=== PATIENT | male | born 1995 | race Caucasian/White ===

== ENCOUNTER 2016-08-21 21:01 | Emergency (ER) | payer SELFPAY ==
[~2016-08-21] VITALS: Ht 177.8 cm; Wt 68.8 kg
[2016-08-21 21:06] VITALS: TEMP 37; Ht 177.8 cm; Wt 68.8 kg
[2016-08-21 21:47] VITALS: O2SAT 99
[2016-08-21] MEDS ORDERED: NAPR1TAB9 PO (22:25)
[2016-08-21] MEDS ORDERED: DOXY100C76 PO (22:25)
[2016-08-21] MEDS ORDERED: SODIUM CHLORIDE 0.9% 1000ML 1,000 ML IV STA (22:33)
[2016-08-21] MEDS ORDERED: KETOROLAC TROMETHAMINE 30 MG/ML VIAL IV STA (22:33)
[2016-08-21 22:42] LABS: BASO % 0.2 %; BASO ABS # 0.02 K/uL (0-0.2); COMPLETE YES; EOS % 1.3 %; HEMATOCRIT 35.3 % (42-52); IG% 0.4 %; LYMPH ABS # 2.65 K/uL (1.2-3.4); MEAN CELL VOLUME 86.5 fL (80-100); MEAN CORPUSCULAR HEMOGLOBIN 29.4 pg (25-34); NEUT % 68.1 %; PLATELET COUNT 444 K/uL (130-400); RED BLOOD COUNT 4.08 M/uL (4.7-6.1); WHITE BLOOD COUNT 12.63 K/uL (4.8-10.8)
--- NOTE | 2016-08-21 22:51 | EMERGENCY ROOM VISIT NOTE ---
History Report prepared by Kelsey: Jamaal Del Rio Under the Supervision of: Dr. Guy Lott D.O. First contact with patient: 22:17 Chief Complaint: PAIN (GENERALIZED) Stated Complaint: STIFF NECK, SORE BONES/JOINTS, TIRED,UPSET STOMACH History of Present Illness The patient is a 20 year old male who presents to the Emergency Room with complaints of constant discomfort in his neck and feet beginning two months ago. The patient states that it all started with a stiff neck. He reports that his big toe, leg, and knee all began to swell, and he now has lower back pain, hip pain, headache, and shoulder pain. The patient notes that he has been seen by three different doctors and nothing helped his symptoms. He states that he was tested for Lyme, and it was negative. The patient states that he has been taking doxycycline for the past two weeks, and it has not helped either. He notes that he went to his PCP a month ago and was treated for gout. The patient denies rashes, shortness of breath, chest pain, urinary symptoms, difficulty waking, and abdominal pain. He also denies any history of surgeries and previous medical problems. The patient notes that he was in [place] two months ago, and that is when it started. Source of History: patient Onset: two months ago Position: neck, foot (bilateral) Timing: constant Associated Symptoms: + headache, + back pain, No chest pain, No SOB, No abdominal pain, No urinary symptoms, No rash Note: Associated symptoms: big toe, leg, and knee edema, hip pain, and shoulder pain. Review of Systems See HPI for pertinent positives & negatives. A total of 10 systems reviewed and were otherwise negative. Family History Patient reports no known family medical history. Social History Smoking Status: Never Smoker Current/Historical Medications Scheduled Amoxicillin (Amoxil), 500 MG PO TID Amoxicillin (Amoxil), 500 MG PO TID Doxycycline Monohydrate (Monodox), 100 MG PO BID Prednisone (Prednisone Tab), 40 MG PO DAILY Prednisone (Prednisone Tab), 2 TAB PO DAILY Miscellaneous Medications Naproxen (Aleve), 220 MG PO Allergies Coded Allergies: No Known Allergies (Unverified , 08/21/16) Physical Exam Vital Signs Date Time Temp Pulse Resp B/P (MAP) Pulse Ox O2 Delivery O2 Flow Rate FiO2 08/22/16 04:10 75 16 113/59 100 08/22/16 03:37 86 08/22/16 02:40 75 18 117/84 99 Room Air 08/21/16 22:01 75 18 121/63 98 Room Air 08/21/16 21:55 79 08/21/16 21:47 99 Room Air 08/21/16 21:06 37.0 98 18 118/71 97 Room Air Physical Exam GENERAL: Patient is awake, alert, and in no acute distress. Patient is resting comfortably and showing no signs of anxiety EYES: The conjunctivae are clear. The pupils are round and reactive. EARS, NOSE, MOUTH AND THROAT: The nose is without any evidence of any deformity. Mucous membranes are moist tongue is midline NECK: The neck is nontender and supple. RESPIRATORY: Normal respiratory effort is noted there is no evidence of wheezing rhonchi or rales CARDIOVASCULAR: Regular rate and rhythm noted there no murmurs rubs or gallops normal S1 normal S2 GASTROINTESTINAL: The abdomen is soft. Bowel sounds are present in all quadrants. Abdomen is nontender MUSCULOSKELETAL/EXTREMITIES: Effusion noted over the left knee, ROM was diminished secondary to pain, warmth noted, but no erythema. SKIN: There is no obvious evidence of any rash. There are no petechiae, pallor or cyanosis noted. NEUROLOGIC: Patient is awake alert and oriented x3 strength is symmetric patellar reflexes are 2+ bilaterally Medical Decision & Procedures ER Provider Diagnostic Interpretation: Radiology results as stated below per my review and radiologist interpretation: SINGLE VIEW CHEST CLINICAL HISTORY: Atypical chest pain. FINDINGS: 2 AP, portable, upright chest radiographs are obtained. No prior studies are available for comparison at the time of dictation. The examination is degraded by portable technique and patient rotation. The cardiomediastinal silhouette is unremarkable. The lungs and pleural spaces are clear. No pneumothorax is seen. The bony thorax is grossly intact. IMPRESSION: No active disease in the chest. Electronically signed by: Evin Enriquez M.D. 08/21/2016 11:13 PM Dictated Date/Time: 08/21/2016 11:[address] HEAD: No intracranial hemorrhage or mass effect. Ventricles are within limits and midline. Visualized paranasal sinuses, mastoid and orbitals are within limits. Radiologist: Samson Pryor MD Study ready at 23:26 and initial results transmitted at 23:49 Laboratory Results 08/21/16 21:40 Red Blood Count 4.08, Mean Corpuscular Volume 86.5, Mean Corpuscular Hemoglobin 29.4, Mean Corpuscular Hemoglobin Concent 34.0, Mean Platelet Volume 9.0, Neutrophils (%) (Auto) 68.1, Lymphocytes (%) (Auto) 21.0, Monocytes (%) (Auto) 9.0, Eosinophils (%) (Auto) 1.3, Basophils (%) (Auto) 0.2, Neutrophils # (Auto) 8.60, Lymphocytes # (Auto) 2.65, Monocytes # (Auto) 1.14, Eosinophils # (Auto) 0.17, Basophils # (Auto) 0.02 08/21/16 21:40 Test 08/21/16 21:40 08/22/16 00:29 08/22/16 01:36 08/22/16 02:50 White Blood Count 12.63 K/uL (4.8-10.8) Red Blood Count 4.08 M/uL (4.7-6.1) Hemoglobin 12.0 g/dL (14.0-18.0) Hematocrit 35.3 % (42-52) Mean Corpuscular Volume 86.5 fL (80-100) Mean Corpuscular Hemoglobin 29.4 pg (25-34) Mean Corpuscular Hemoglobin Concent 34.0 g/dl (32-36) Platelet Count 444 K/uL (130-400) Mean Platelet Volume 9.0 fL (7.4-10.4) Neutrophils (%) (Auto) 68.1 % Lymphocytes (%) (Auto) 21.0 % Monocytes (%) (Auto) 9.0 % Eosinophils (%) (Auto) 1.3 % Basophils (%) (Auto) 0.2 % Neutrophils # (Auto) 8.60 K/uL (1.4-6.5) Lymphocytes # (Auto) 2.65 K/uL (1.2-3.4) Monocytes # (Auto) 1.14 K/uL (0.11-0.59) Eosinophils # (Auto) 0.17 K/uL (0-0.5) Basophils # (Auto) 0.02 K/uL (0-0.2) RDW Standard Deviation 36.8 fL (36.4-46.3) RDW Coefficient of Variation 11.7 % (11.5-14.5) Immature Granulocyte % (Auto) 0.4 % Immature Granulocyte # (Auto) 0.05 K/uL (0.00-0.02) Erythrocyte Sedimentation Rate 58 mm/hr (0-14) Anion Gap 7.0 mmol/L (3-11) Est Creatinine Clear Calc Drug Dose 138.7 ml/min Estimated GFR () 146.5 Estimated GFR (Non- 126.4 BUN/Creatinine Ratio 20.2 (10-20) Calcium Level 9.5 mg/dl (8.5-10.1) Total Bilirubin 0.6 mg/dl (0.2-1) Direct Bilirubin 0.1 mg/dl (0-0.2) Aspartate Amino Transf (AST/SGOT) 30 U/L (15-37) Alanine Aminotransferase (ALT/SGPT) 59 U/L (12-78) Alkaline Phosphatase 83 U/L (45-117) Total Creatine Kinase 49 U/L (39-308) C-Reactive Protein 18.00 mg/dl (0-0.29) Total Protein 7.4 gm/dl (6.4-8.2) Albumin 3.0 gm/dl (3.4-5.0) Lipase 85 U/L (73-393) Lyme Disease IgG Antibody POS (NEG) Urine Color YELLOW Urine Appearance CLEAR (CLEAR) Urine pH 6.0 (4.5-7.5) Urine Specific [place] 1.019 (1.000-1.030) Urine Protein NEG (NEG) Urine Glucose (UA) NEG (NEG) Urine Ketones NEG (NEG) Urine Occult Blood NEG (NEG) Urine Nitrite NEG (NEG) Urine Bilirubin NEG (NEG) Urine Urobilinogen NEG (NEG) Urine Leukocyte Esterase NEG (NEG) Synovial Fluid Source KNEE Synovial Fluid Color YELLOW Synovial Fluid Appearance CLOUDY Synovial Fluid WBC 29988 /uL (0-200) Synovial Fluid RBC 3000 /uL Synovial Fluid Polynuclear WBCs % 76.3 % Synovial Fluid Mononuclear WBCs % 23.7 % Synovial Fluid Crystals CSF Color COLORLESS CSF Appearance CLEAR CSF WBC 0 /uL (0-5) CSF RBC 0 /uL (0) CSF Xanthrochromic NO XANTHOCHROMIA CSF Cell Count Tube # 4 CSF Chemistry Tube # 2 CSF Glucose 59 mg/dl (40-70) CSF Total Protein 33.5 mg/dl (15.0-45.0) Laboratory results per my review. Medications Administered Medications (Trade) Dose Ordered Sig/Jesus Route Start Time Stop Time Status Last Admin Dose Admin Sodium Chloride 1,000 ml @ 999 mls/hr Q1H1M STAT IV 08/21/16 22:33 08/21/16 23:33 DC 08/21/16 22:44 999 MLS/HR Ketorolac Tromethamine (Toradol Inj) 30 mg NOW STAT IV 08/21/16 22:33 08/21/16 22:35 DC 08/21/16 22:33 30 MG Ceftriaxone Sodium (Rocephin Inj) 1 gm NOW STAT IV 08/22/16 00:10 08/22/16 00:11 DC 08/22/16 00:10 1 GM Procedure Lumbar Puncture Indication: headache. Verbal consent was obtained after the risks and benefits were explained, including but not limited to headache, bleeding/clotting, scarring, infection, pain, and bone/joint/nerve damage. At this time, the risks of the procedure are less than the risks of NOT performing the procedure. A time out was taken and the correct patient and site identified. The patient was placed in the seated position and the back was prepped with betadine and draped in the standard fashion. The L3 intervertebral space was identified, anesthetized locally with 1 % lidocaine without epinephrine, and the spinal needle was inserted through the skin with the bevel parallel to the dural fibers. The needle was carefully advanced into the lumbar cistern and 4 tubes of clear CSF was obtained. The stylet was replaced and the needle was removed. A bandaid was placed and the patient was placed in the supine position. The patient tolerated the procedure well and there were no complications. ED Course 2230: The patient was evaluated in room C07. A complete history and physical examination were performed. 3: Ordered Toradol Inj 30mg IV, NSS 1,000 ml @ 999 mls/hr IV 0010: Ordered Rocephin Inj 1gm IV 0214: Upon reevaluation, the patient is resting comfortably. I discussed his current exam findings. I performed an LP. Refer to the procedure note for more information. Medical Decision Differential diagnosis: Etiologies such as migraine headache, meningitis, sinusitis, CO exposure, ICH, SAH, infection, tumor, headache, sinus thrombosis, arterial dissection, as well as others were entertained. Medication Reconciliation: I attest that I have personally reviewed the patient' s current medications list. Blood pressure screening: Patient was found to have normal blood pressure on screening and does not require follow-up. The patient is a 20-year-old male who presented to the emergency department for evaluation of multiple complaints including headache joint pain neck pain and back pain. The patient was recently diagnosed with Lyme disease and was put on doxycycline. He continues to take doxycycline the symptoms worsen. I was concerned that this could represent Lyme arthritis or possibly Lyme meningitis. The patient did have an arthrocentesis which revealed signs of inflammation but not septic joint. He also had a lumbar puncture which did not reveal signs of infection. I discussed the patient's laboratory and radiographic studies with him. He was treated with IV fluids IV pain medicine and IV antibiotics. He was switched to a different antibiotic and encouraged follow-up with his primary care physician as soon as possible return to the emergency department immediately if symptoms change worsen or the need arises Impression Primary Impression: Lyme disease Additional Impressions: Effusion, right knee Lyme arthritis of knee Headache Scribe Attestation The scribe's documentation has been prepared under my direction and personally reviewed by me in its entirety. I confirm that the note above accurately reflects all work, treatment, procedures, and medical decision making performed by me. Departure Information Prescriptions Prednisone (Prednisone Tab) 20 Mg Tab 2 TAB PO DAILY for 5 Days, #10 TAB Prov: Mandy Mckinley PA-C 08/22/16 Amoxicillin (AMOXIL) 500 Mg Cap 500 MG PO TID for 30 Days, #90 CAP Prov: Mandy Mckinley PA-C 08/22/16 Prednisone (Prednisone Tab) 20 Mg Tab 40 MG PO DAILY, #10 TAB Prov: Guy Lott, 08/22/16 Amoxicillin (AMOXIL) 500 Mg Tab 500 MG PO TID, #90 TAB Prov: Guy Lott, 08/22/16 Referrals No Doctor, Assigned (PCP) Patient Instructions [facility] Problem Qualifiers
[2016-08-21 22:52] LABS: BUN/CREATININE RATIO 20.2 (10-20); CALCIUM 9.5 mg/dl (8.5-10.1); CREATININE 0.82 mg/dl (0.60-1.40); POTASSIUM 3.9 mmol/L (3.5-5.1)
--- NOTE | 2016-08-21 23:15 | DIAGNOSTIC IMAGING REPORT ---
SINGLE VIEW CHEST CLINICAL HISTORY: Atypical chest pain. FINDINGS: 2 AP, portable, upright chest radiographs are obtained. No prior studies are available for comparison at the time of dictation. The examination is degraded by portable technique and patient rotation. The cardiomediastinal silhouette is unremarkable. The lungs and pleural spaces are clear. No pneumothorax is seen. The bony thorax is grossly intact. IMPRESSION: No active disease in the chest. Electronically signed by: Evin Enriquez M.D. 08/21/2016 11:13 PM Dictated Date/Time: 08/21/2016 11:13 PM
[2016-08-21 23:22] LABS: LYME DISEASE AB IGM NEG (NEG)
[2016-08-21 23:37] LABS: LYME DISEASE AB IGG POS (NEG)
[2016-08-22] MEDS ORDERED: CEFTRIAXONE SOD INJ 1 GM ADDVIAL IV STA (00:10)
[2016-08-22] MEDS: LIDOCAINE/EPINEPHRINE 1% 20 ML VIAL ONE (00:51)
[2016-08-22 01:01] LABS: URINE APPEARANCE CLEAR (CLEAR); URINE BILIRUBIN NEG (NEG); URINE COLOR YELLOW; URINE NITRITE NEG (NEG); URINE SPECIFIC GRAVITY 1.019 (1.000-1.030); UROBILINOGEN NEG (NEG)
[2016-08-22 01:02] LABS: MANUAL MICROSCOPIC REQUIRED? NO; REVIEW REQ? NO
[2016-08-22] MEDS ORDERED: LIDOCAINE HCL 1% 20 ML VIAL ONE (01:30)
[2016-08-22 02:47] LABS: SYNOVIAL FLUID APPEARANCE CLOUDY; SYNOVIAL FLUID COLOR YELLOW; SYNOVIAL FLUID MONONUC RELAT 23.7 %; SYNOVIAL FLUID POLYNUC RELAT 76.3 %
[2016-08-22] MEDS ORDERED: PRED20TA2 PO ×2 (03:10→04:05)
[2016-08-22] MEDS ORDERED: AMOX500T3 PO (03:10)
--- NOTE | 2016-08-22 03:13 | EMERGENCY ROOM VISIT NOTE ---
ED Visit Note Joint Aspiration Indication: Knee effusion Location: Right knee Verbal consent was obtained after the risks and benefits were explained, including but not limited to bleeding, scarring, infection, pain, and bone/joint /nerve damage. At this time, the risks of the procedure are less than the risks of NOT performing the procedure. A time out was taken and the correct patient and site identified. The skin was prepped with betadine and a sterile field set. The wound was anesthetized with 2ml of 1% lidocaine without epinephrine. The right knee joint space was entered with a 18-gauge needle and yellow synovial fluid of 100 mL's was removed and sent for analysis. The area was cleansed and dressed bacitracin and bandaged by nursing. Detailed wound care instructions and signs and symptoms of worsening infection reviewed with the patient. No complications and the patient tolerated the procedure well. Current/Historical Medications Scheduled Doxycycline Monohydrate (Monodox), 100 MG PO BID Miscellaneous Medications Naproxen (Aleve), 220 MG PO Allergies Coded Allergies: No Known Allergies (Unverified , 08/21/16) Vital Signs Date Time Temp Pulse Resp B/P (MAP) Pulse Ox O2 Delivery O2 Flow Rate FiO2 08/22/16 02:40 75 18 117/84 99 Room Air 08/21/16 22:01 75 18 121/63 98 Room Air 08/21/16 21:55 79 08/21/16 21:47 99 Room Air 08/21/16 21:06 37.0 98 18 118/71 97 Room Air Laboratory Results 08/21/16 21:40 Red Blood Count 4.08, Mean Corpuscular Volume 86.5, Mean Corpuscular Hemoglobin 29.4, Mean Corpuscular Hemoglobin Concent 34.0, Mean Platelet Volume 9.0, Neutrophils (%) (Auto) 68.1, Lymphocytes (%) (Auto) 21.0, Monocytes (%) (Auto) 9.0, Eosinophils (%) (Auto) 1.3, Basophils (%) (Auto) 0.2, Neutrophils # (Auto) 8.60, Lymphocytes # (Auto) 2.65, Monocytes # (Auto) 1.14, Eosinophils # (Auto) 0.17, Basophils # (Auto) 0.02 08/21/16 21:40 Test 08/21/16 21:40 6/23/17 00:29 08/22/16 01:36 08/22/16 02:50 White Blood Count 12.63 K/uL (4.8-10.8) Red Blood Count 4.08 M/uL (4.7-6.1) Hemoglobin 12.0 g/dL (14.0-18.0) Hematocrit 35.3 % (42-52) Mean Corpuscular Volume 86.5 fL (80-100) Mean Corpuscular Hemoglobin 29.4 pg (25-34) Mean Corpuscular Hemoglobin Concent 34.0 g/dl (32-36) Platelet Count 444 K/uL (130-400) Mean Platelet Volume 9.0 fL (7.4-10.4) Neutrophils (%) (Auto) 68.1 % Lymphocytes (%) (Auto) 21.0 % Monocytes (%) (Auto) 9.0 % Eosinophils (%) (Auto) 1.3 % Basophils (%) (Auto) 0.2 % Neutrophils # (Auto) 8.60 K/uL (1.4-6.5) Lymphocytes # (Auto) 2.65 K/uL (1.2-3.4) Monocytes # (Auto) 1.14 K/uL (0.11-0.59) Eosinophils # (Auto) 0.17 K/uL (0-0.5) Basophils # (Auto) 0.02 K/uL (0-0.2) RDW Standard Deviation 36.8 fL (36.4-46.3) RDW Coefficient of Variation 11.7 % (11.5-14.5) Immature Granulocyte % (Auto) 0.4 % Immature Granulocyte # (Auto) 0.05 K/uL (0.00-0.02) Erythrocyte Sedimentation Rate 58 mm/hr (0-14) Anion Gap 7.0 mmol/L (3-11) Est Creatinine Clear Calc Drug Dose 138.7 ml/min Estimated GFR () 146.5 Estimated GFR (Non- 126.4 BUN/Creatinine Ratio 20.2 (10-20) Calcium Level 9.5 mg/dl (8.5-10.1) Total Bilirubin 0.6 mg/dl (0.2-1) Direct Bilirubin 0.1 mg/dl (0-0.2) Aspartate Amino Transf (AST/SGOT) 30 U/L (15-37) Alanine Aminotransferase (ALT/SGPT) 59 U/L (12-78) Alkaline Phosphatase 83 U/L (45-117) Total Creatine Kinase 49 U/L (39-308) C-Reactive Protein 18.00 mg/dl (0-0.29) Total Protein 7.4 gm/dl (6.4-8.2) Albumin 3.0 gm/dl (3.4-5.0) Lipase 85 U/L (73-393) Lyme Disease IgG Antibody POS (NEG) Urine Color YELLOW Urine Appearance CLEAR (CLEAR) Urine pH 6.0 (4.5-7.5) Urine Specific [place] 1.019 (1.000-1.030) Urine Protein NEG (NEG) Urine Glucose (UA) NEG (NEG) Urine Ketones NEG (NEG) Urine Occult Blood NEG (NEG) Urine Nitrite NEG (NEG) Urine Bilirubin NEG (NEG) Urine Urobilinogen NEG (NEG) Urine Leukocyte Esterase NEG (NEG) Synovial Fluid Source KNEE Synovial Fluid Color YELLOW Synovial Fluid Appearance CLOUDY Synovial Fluid WBC 55948 /uL (0-200) Synovial Fluid RBC 3000 /uL Synovial Fluid Polynuclear WBCs % 76.3 % Synovial Fluid Mononuclear WBCs % 23.7 % Medications Administered Medications (Trade) Dose Ordered Sig/Jesus Route Start Time Stop Time Status Last Admin Dose Admin Sodium Chloride 1,000 ml @ 999 mls/hr Q1H1M STAT IV 08/21/16 22:33 08/21/16 23:33 DC 08/21/16 22:44 999 MLS/HR Ketorolac Tromethamine (Toradol Inj) 30 mg NOW STAT IV 08/21/16 22:33 08/21/16 22:35 DC 08/21/16 22:33 30 MG Ceftriaxone Sodium (Rocephin Inj) 1 gm NOW STAT IV 08/22/16 00:10 08/22/16 00:11 DC 08/22/16 00:10 1 GM Departure Information Referrals No Doctor, Assigned (PCP) Patient Instructions [facility]
[2016-08-22 03:26] LABS: CSF TOTAL PROTEIN 33.5 mg/dl (15.0-45.0)
[2016-08-22 03:33] LABS: CSF CHEMISTRY TUBE # 2
[2016-08-22 03:53] LABS: CSF APPEARANCE CLEAR; CSF COLOR COLORLESS; CSF XANTHOCHROMIC NO XANTHOCHROMIA
[2016-08-22 04:02] LABS: CSF APPEARANCE CLEAR; CSF COLOR COLORLESS; CSF XANTHOCHROMIC NO XANTHOCHROMIA
[2016-08-22] MEDS ORDERED: AMOX500C3 PO (04:05)
[2016-08-22 04:10] VITALS: BP 113/59; PULSE 75; O2SAT 100
--- NOTE | 2016-08-22 06:34 | DIAGNOSTIC IMAGING REPORT ---
CT HEAD WITHOUT CONTRAST (CT) CLINICAL HISTORY: Headache, stiff neck, malaise. COMPARISON STUDY: No previous studies for comparison. TECHNIQUE: Axial CT of the brain is performed from the vertex to the skull base. IV contrast was not administered for this examination. CT DOSE: 537.48 mGy.cm FINDINGS: No intra or extra-axial mass lesions are visualized. There is no CT evidence of acute cortical infarction. There is no evidence of midline shift. There is no acute hemorrhage. No calvarial fractures are visualized. There is no evidence of pathologic ventricular dilatation. There is no evidence of acute sinusitis IMPRESSION: Normal noncontrast head CT. Electronically signed by: Elliott Carrillo M.D. 08/22/2016 6:32 AM Dictated Date/Time: 08/22/2016 6:31 AM
[2016-08-25 00:57] LABS: LYME DNA PCR CSF OR SYNOVIAL Not detected (Not Detected); LYME DNA SOURCE Synovial Fluid
[2016-08-25 00:57] LABS: LYME DNA PCR CSF OR SYNOVIAL Not detected (Not Detected); LYME DNA SOURCE CSF
[2016-08-27 00:01] LABS: 18KDIGG BAND NONREACTIVE (NONREACTIVE); 23KDIGG BAND NONREACTIVE (NONREACTIVE); 23KDIGM BAND NONREACTIVE (NONREACTIVE); 28KDIGG BAND NONREACTIVE (NONREACTIVE); 30KDIGG BAND NONREACTIVE (NONREACTIVE); 39KDIGG BAND NONREACTIVE (NONREACTIVE); 39KDIGM BAND NONREACTIVE (NONREACTIVE); 41KDIGG BAND NONREACTIVE (NONREACTIVE); 41KDIGM BAND NONREACTIVE (NONREACTIVE); 45KDIGG BAND REACTIVE (NONREACTIVE); 58KDIGG BAND NONREACTIVE (NONREACTIVE); 66KDIGG BAND NONREACTIVE (NONREACTIVE); 93KDIGG BAND NONREACTIVE (NONREACTIVE)
[2016-09-03] MEDS ORDERED: MTR600X PO (13:15)
[2016-09-04] MEDS ORDERED: METH4PAK PO (12:05)
[2016-09-04] MEDS ORDERED: MELO7.5T6 PO (12:05)
== END 2016-08-22 04:13 | disposition home or self-care (01) ==
LOC: C.EDB 21:03 → C.EDA 08-22 04:13
DX: A69.23 Arthritis due to Lyme disease (principal); M25.461 Effusion, right knee; R51 Headache; M10.9 Gout, unspecified

== ENCOUNTER 2016-08-30 19:56 | Inpatient (IN) | payer OTHER ==
[~2016-08-30] VITALS: Ht 177.8 cm; Wt 65.8 kg
[~2016-08-30 19:56] MED LIST: AMOX500C3 PO; AMOX500T3 PO; DOXY100C76 PO; NAPR1TAB9 PO; PRED20TA2 PO
[2016-08-30] MEDS ORDERED: AMOX500C3 PO (20:23)
[2016-08-30] MEDS ORDERED: SODIUM CHLORIDE 0.9% 500ML 500 ML IV STA (20:24)
[2016-08-30] MEDS ORDERED: ONDANSETRON INJ 2 MG/ML 2 ML VIAL IV STA (20:24)
[2016-08-30] MEDS ORDERED: SODIUM CHLORIDE 0.9% 1000ML 1,000 ML IV STA (20:24)
[2016-08-30 20:55] LABS: BASO % 0.2 %; BASO ABS # 0.03 K/uL (0-0.2); COMPLETE YES; EOS % 1.2 %; HEMATOCRIT 37.8 % (42-52); IG% 1.8 %; LYMPH % 18.5 %; LYMPH ABS # 2.92 K/uL (1.2-3.4); MEAN CELL VOLUME 86.5 fL (80-100); MEAN CORPUSCULAR HEMOGLOBIN 29.1 pg (25-34); MEAN CORPUSCULAR HGB CONC 33.6 g/dl (32-36); MEAN PLATELET VOLUME 9.1 fL (7.4-10.4); MONO % 6.6 %; NEUT % 71.7 %; PLATELET COUNT 547 K/uL (130-400); RED BLOOD COUNT 4.37 M/uL (4.7-6.1); WHITE BLOOD COUNT 15.81 K/uL (4.8-10.8)
[2016-08-30] MEDS: MoRPHine SULFATE 4 MG/ML 1 ML CARP\\VIAL IV PRN ×2 (21:03→23:34)
[2016-08-30 21:14] LABS: BLOOD UREA NITROGEN 20 mg/dl (7-18); BUN/CREATININE RATIO 23.9 (10-20); CALCIUM 9.4 mg/dl (8.5-10.1); CARBON DIOXIDE 29 mmol/L (21-32); CHLORIDE 103 mmol/L (98-107); CREATININE 0.83 mg/dl (0.60-1.40); GLUCOSE 100 mg/dl (70-99); POTASSIUM 4.1 mmol/L (3.5-5.1); SODIUM 138 mmol/L (136-145)
[2016-08-30 21:39] LABS: URINE APPEARANCE CLEAR (CLEAR); URINE BILIRUBIN NEG (NEG); URINE COLOR YELLOW; URINE NITRITE NEG (NEG); UROBILINOGEN NEG (NEG)
[2016-08-30 21:44] LABS: MANUAL MICROSCOPIC REQUIRED? NO; REVIEW REQ? NO
[2016-08-30] MEDS ORDERED: GADAVIST IV PRN (22:30)
--- NOTE | 2016-08-30 22:39 | DIAGNOSTIC IMAGING REPORT ---
MRI OF THE CERVICAL SPINE WITH AND WITHOUT CONTRAST CLINICAL HISTORY: Severe neck pain, fever and leukocytosis COMPARISON: None. TECHNIQUE: Utilizing a 1.5 Evy magnet and dedicated coil, multiplanar, multiecho imaging of the cervical spine was performed before and after intravenous administration of 7 of Gadavist. FINDINGS: Alignment of the cervical spine is anatomic. Vertebral body heights are maintained. There is no marrow replacement or marrow edema. Cervical cord signal and caliber are normal. There is no intracanalicular mass or fluid collection. Paravertebral tissues are unremarkable. C2-C3: The central canal and neural foramen are patent. C3-C4: The central canal and neural foramen are patent. C4-C5: The central canal and neural foramen are patent. C5-C6: The central canal and neural foramen are patent. C6-C7: The central canal and neural foramen are patent. C7-T1: The central canal and neural foramen are patent. IMPRESSION: Normal MRI of the cervical spine. Electronically signed by: Aniket Franklin M.D. 08/30/2016 10:38 PM Dictated Date/Time: 08/30/2016 10:27 PM
[2016-08-31] MEDS ORDERED: HYDROmorphone INJ 1 MG/ML SYR IV STA (00:47)
[2016-08-31] MEDS ORDERED: IBUPROFEN 200 MG TAB PO PRN (01:30)
[2016-08-31] MEDS ORDERED: TRAMADOL HCL 50 MG TAB PO PRN (01:30)
[2016-08-31] MEDS ORDERED: ACETAMINOPHEN 325 MG TAB PO PRN (01:30)
[2016-08-31] MEDS ORDERED: ONDANSETRON INJ 2 MG/ML 2 ML VIAL IV PRN (02:15)
[2016-08-31] MEDS ORDERED: CYCLOBENZAPRINE HCL 10 MG TAB PO ONE (02:25)
[2016-08-31] MEDS ORDERED: CYCLOBENZAPRINE HCL 10 MG TAB PO PRN (02:30)
--- NOTE | 2016-08-31 02:30 | History and Physical ---
History & Physical Date & Time of Service: Aug 31, 2016 at 02:30 Chief Complaint: Neck And Shoulder Pain Primary Care Physician: Yves Lerner M.D. History of Present Illness Source: patient, spouse, hospital records History of Present Illness 2 months ago, patient was in [place] with his on a vacation for 2 weeks. They were told by natives to be wary of rat lungworm disease. Shortly after returning to the [facility], patient developed generalized headache symptoms achy intermittent, joint aches, neck pain and shoulder pain, back pain, right knee pain, toe pain symptoms along with low-grade fever at home , chills, malaise, poor appetite later resulting in a 15 pound weight loss to date. No rash, no abdominal pain, no diarrhea/dysuria symptoms. Patient saw his PCP who according to patient did not have any answers for him. Patient consulted a local orthopedic doctor (Dr. Kumar) last month. Symptoms attributed to Lyme disease as per patient although initial outpatient Lyme test was normal. Orthopedic doctor prescribed Doxycycline month long course which patient stopped after 2 weeks because he felt it wasn't helping. Patient seen at the emergency room last week for persistent symptoms. Abnormal Lyme test noted. Right knee arthrocentesis done. Synovial WBC greater than 20,000 LP done yielding normal CSF results. Patient discharged on Amoxicillin and Prednisone course for possible Lyme arthritis. Patient returned to the emergency room with persistent worsening symptoms in the last few days. Past Medical/Surgical History Patient claims he had Lyme disease about 2 years ago which PCP felt did not need antibiotic treatment as per patient. Patient self medicated with "natural" medicine. 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) Allergies Coded Allergies: No Known Allergies (Unverified , 08/21/16) Home Medications Scheduled Amoxicillin (Amoxil), 500 MG PO TID Review of Systems As per history of present illness, all other ROS negative Physical Exam Vital Signs Date Time Temp Pulse Resp B/P (MAP) Pulse Ox O2 Delivery O2 Flow Rate FiO2 08/31/16 02:00 86 18 112/70 99 Room Air 08/30/16 23:24 96 18 125/71 99 Room Air 08/30/16 21:26 94 15 122/67 98 Room Air 08/30/16 19:58 37.3 104 16 125/45 100 Room Air General Appearance: + pertinent finding (slightly anxious, uncomfortable) Eyes: + pertinent finding (pale palpebral conjunctivae, dry mucosa) Neck: + pertinent finding (some limitation in neck motion) Respiratory/Chest: + decreased breath sounds Cardiovascular: regular rate, rhythm Abdomen/GI: soft Extremities/Musculoskelatal: + pertinent finding (tender, warm swelling right knee, pain on passive motion) Neurologic/Psych: alert Skin: + pallor Diagnostics Laboratory Results Results Past 24 Hours Test 08/30/16 20:40 08/30/16 20:45 08/31/16 02:13 Range/Units White Blood Count 15.81 4.8-10.8 K/uL Red Blood Count 4.37 4.7-6.1 M/uL Hemoglobin 12.7 14.0-18.0 g/dL Hematocrit 37.8 42-52 % Mean Corpuscular Volume 86.5 80-100 fL Mean Corpuscular Hemoglobin 29.1 25-34 pg Mean Corpuscular Hemoglobin Concent 33.6 32-36 g/dl Platelet Count 547 130-400 K/uL Mean Platelet Volume 9.1 7.4-10.4 fL Neutrophils (%) (Auto) 71.7 % Lymphocytes (%) (Auto) 18.5 % Monocytes (%) (Auto) 6.6 % Eosinophils (%) (Auto) 1.2 % Basophils (%) (Auto) 0.2 % Neutrophils # (Auto) 11.35 1.4-6.5 K/uL Lymphocytes # (Auto) 2.92 1.2-3.4 K/uL Monocytes # (Auto) 1.04 0.11-0.59 K/uL Eosinophils # (Auto) 0.19 0-0.5 K/uL Basophils # (Auto) 0.03 0-0.2 K/uL RDW Standard Deviation 38.7 36.4-46.3 fL RDW Coefficient of Variation 12.1 11.5-14.5 % Immature Granulocyte % (Auto) 1.8 % Immature Granulocyte # (Auto) 0.28 0.00-0.02 K/uL Erythrocyte Sedimentation Rate 59 0-14 mm/hr Urine Color YELLOW Urine Appearance CLEAR CLEAR Urine pH 6.0 4.5-7.5 Urine Specific [place] 1.020 1.000-1.030 Urine Protein NEG NEG Urine Glucose (UA) NEG NEG Urine Ketones NEG NEG Urine Occult Blood NEG NEG Urine Nitrite NEG NEG Urine Bilirubin NEG NEG Urine Urobilinogen NEG NEG Urine Leukocyte Esterase NEG NEG Sodium Level 138 136-145 mmol/L Potassium Level 4.1 3.5-5.1 mmol/L Chloride Level 103 98-107 mmol/L Carbon Dioxide Level 29 21-32 mmol/L Anion Gap 6.0 3-11 mmol/L Blood Urea Nitrogen 20 7-18 mg/dl Creatinine 0.83 0.60-1.40 mg/dl Est Creatinine Clear Calc Drug Dose 133.4 ml/min Estimated GFR () 145.8 Estimated GFR (Non- 125.8 BUN/Creatinine Ratio 23.9 10-20 Random Glucose 100 70-99 mg/dl Calcium Level 9.4 8.5-10.1 mg/dl C-Reactive Protein 15.30 0-0.29 mg/dl Bedside Lactic Acid Venous 1.16 0.90-1.70 mmol/L Microbiology Results 08/30/16 Blood Culture, Received Pending 08/30/16 Blood Culture, Received Pending Diagnostic Radiology MRI cervical spine normal Impression Assessment and Plan Multiple joint aches with a definite right knee effusion (c/w inflammatory arthritis on recent joint aspirate) and constitutional symptoms of 2 months duration Autoimmune versus infectious etiology History of abnormal Lyme test status post Doxycycline, Amox, pred Headache symptoms of 2 months duration secondary to illness Anemia (? of chronic inflammation/dse), unknown baseline Observation analgesia GMF Cultures, hold antibiotics autoimmune dse workup, Rheumatology consult RE multiple joint aches MRI brain headache Anemia workup retrieve PCP records Further management pending workup results DVT prophylaxis SCDs Full code VTE Prophylaxis VTE Risk Assessment Done? Y/N: Yes Risk Level: Moderate
[2016-08-31 02:43] LABS: ALKALINE PHOSPHATASE 77 U/L (45-117); ALT/SGPT 70 U/L (12-78); AST/SGOT 26 U/L (15-37)
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
[2016-08-31 03:06] VITALS: BP 124/72; PULSE 102; TEMP 37.2; O2SAT 99; Ht 177.8 cm; Wt 65.8 kg
[2016-08-31] MEDS ORDERED: IV FLUIDS COMPLETED PRN (03:15)
[2016-08-31 05:53] LABS: BASO % 0.2 %; BASO ABS # 0.04 K/uL (0-0.2); COMPLETE YES; EOS % 0.7 %; HEMATOCRIT 38.9 % (42-52); IG% 2.2 %; LYMPH % 15.2 %; LYMPH ABS # 2.45 K/uL (1.2-3.4); MEAN CELL VOLUME 87.8 fL (80-100); MEAN CORPUSCULAR HEMOGLOBIN 29.8 pg (25-34); MEAN CORPUSCULAR HGB CONC 33.9 g/dl (32-36); MEAN PLATELET VOLUME 9.3 fL (7.4-10.4); MONO % 7.7 %; PLATELET COUNT 490 K/uL (130-400); RED BLOOD COUNT 4.43 M/uL (4.7-6.1); WHITE BLOOD COUNT 16.16 K/uL (4.8-10.8)
[2016-08-31 06:07] LABS: INR 1.1 (0.9-1.1); PARTIAL THROMBOPLASTIN RATIO 1.1
[2016-08-31 06:36] LABS: FERRITIN 454.8 ng/ml (8.0-388.0); RHEUMATOID FACTOR < 10.0 U/mL (0-15); TOTAL IRON BINDING CAPACITY 213 mcg/dl (250-450)
[2016-08-31 07:15] VITALS: BP 109/67; PULSE 81; TEMP 36.4; O2SAT 100
[2016-08-31] MEDS ORDERED: TUBERCULIN SKIN TEST 5 TU in SYRINGE 0 ML ID ONE (08:00)
[2016-08-31 15:11] VITALS: BP 112/69; PULSE 81; TEMP 36.5; O2SAT 96
[2016-08-31 16:00] VITALS: O2SAT 96
[2016-08-31] MEDS: KETOROLAC TROMETHAMINE 30 MG/ML VIAL IV SCH ×2 (16:12→21:00)
[2016-08-31] MEDS: KETOROLAC TROMETHAMINE 30 MG/ML VIAL IV PRN ×2 (16:49→22:21)
--- NOTE | 2016-08-31 18:25 | Progress Note ---
Medicine Progress Note Date & Time of Visit: Aug 31, 2016 at 14:24. Subjective 20 yo M recently 3 months ago, who presents with inflamed joints including a R knee effusion and profound neck stiffness along with constitutional symptoms including 15 lb weight loss, night sweats and fevers for the past two months. +neck pain and significant decrease in activa and passive ROM in all planes of motion +R knee effusion with significant pain and swelling and decreased ROM +dactylitis of toes +ringing in ears, sensitive to sounds +ACOSTA, fevers, weight loss, night sweats +reports a 15 pound weight loss despite eating -no pain with urination, rashes, or urethral discharge +tolerating PO +ambulatory Objective Last 8 Hrs Date Time Temp Pulse Resp B/P (MAP) Pulse Ox O2 Delivery O2 Flow Rate FiO2 08/31/16 08:00 Room Air 08/31/16 07:15 36.4 81 16 109/67 (81) 100 Room Air Physical Exam: GEN: WNWD, in no acute distress, alert and appropriate HEENT: NC/AT, PERRL, normal sclerae, CN 2-12 intact, pharynx non-acute, MMM, No eye irritation NECK: small R submandibular LAD, no sternoclavicular joint enlargement. Very limited flexion, rotation and sidebending both active and passive ROM wtih passive movement a little bit better than active. CARDIO: reg rate, S1/2 heard without m/g/r LUNGS: CTA bilaterally, no crackles, rales or wheezes, good diaphragmatic excursion ABD: soft, non-tender, non-distended, no rebound or guarding, +BS : normal penis, testicles and no inguinal LAD or groin rash present. No lesions on penis with superficial visual inspection. EXTREMITY: RP and DP palpable 2+ bilat, no LE swelling or edema, extremities are warm and well-perfused RLE: 1st and 3rd toe enlarged and swollen with TTP, knee with ballotable effusion and restricted ROM LLE: 1st and 2nd toe enlarged and swollen with TTP. RUE/LUE: no other painful, tender or swollen joints. BACK: pain in SI joints to palpation NEURO: CN 2-12 intact, sensation intact throughout, coordination intact (reflexes) BR 2+ bilat, knee 2+ bilat MUSC: 5/5 strength throughout, no focal deficits SKIN: warm and dry, no rashes Laboratory Results: 08/31/16 05:30 Red Blood Count 4.43, Mean Corpuscular Volume 87.8, Mean Corpuscular Hemoglobin 29.8, Mean Corpuscular Hemoglobin Concent 33.9, Mean Platelet Volume 9.3, Neutrophils (%) (Auto) 74.0, Lymphocytes (%) (Auto) 15.2, Monocytes (%) (Auto) 7.7, Eosinophils (%) (Auto) 0.7, Basophils (%) (Auto) 0.2, Neutrophils # (Auto) 11.94, Lymphocytes # (Auto) 2.45, Monocytes # (Auto) 1.25, Eosinophils # (Auto) 0.12, Basophils # (Auto) 0.04 08/30/16 20:40 Test 08/30/16 20:40 08/30/16 20:45 08/31/16 05:30 Erythrocyte Sedimentation Rate 59 mm/hr (0-14) Urine Color YELLOW Urine Appearance CLEAR (CLEAR) Urine pH 6.0 (4.5-7.5) Urine Specific [place] 1.020 (1.000-1.030) Urine Protein NEG (NEG) Urine Glucose (UA) NEG (NEG) Urine Ketones NEG (NEG) Urine Occult Blood NEG (NEG) Urine Nitrite NEG (NEG) Urine Bilirubin NEG (NEG) Urine Urobilinogen NEG (NEG) Urine Leukocyte Esterase NEG (NEG) Anion Gap 6.0 mmol/L (3-11) Est Creatinine Clear Calc Drug Dose 133.4 ml/min Estimated GFR () 145.8 Estimated GFR (Non- 125.8 BUN/Creatinine Ratio 23.9 (10-20) Calcium Level 9.4 mg/dl (8.5-10.1) Total Bilirubin 0.3 mg/dl (0.2-1) Direct Bilirubin < 0.1 mg/dl (0-0.2) Aspartate Amino Transf (AST/SGOT) 26 U/L (15-37) Alanine Aminotransferase (ALT/SGPT) 70 U/L (12-78) Alkaline Phosphatase 77 U/L (45-117) C-Reactive Protein 15.30 mg/dl (0-0.29) Total Protein 7.9 gm/dl (6.4-8.2) Albumin 3.0 gm/dl (3.4-5.0) Bedside Lactic Acid Venous 1.16 mmol/L (0.90-1.70) White Blood Count 16.16 K/uL (4.8-10.8) Red Blood Count 4.43 M/uL (4.7-6.1) Hemoglobin 13.2 g/dL (14.0-18.0) Hematocrit 38.9 % (42-52) Mean Corpuscular Volume 87.8 fL (80-100) Mean Corpuscular Hemoglobin 29.8 pg (25-34) Mean Corpuscular Hemoglobin Concent 33.9 g/dl (32-36) Platelet Count 490 K/uL (130-400) Mean Platelet Volume 9.3 fL (7.4-10.4) Neutrophils (%) (Auto) 74.0 % Lymphocytes (%) (Auto) 15.2 % Monocytes (%) (Auto) 7.7 % Eosinophils (%) (Auto) 0.7 % Basophils (%) (Auto) 0.2 % Neutrophils # (Auto) 11.94 K/uL (1.4-6.5) Lymphocytes # (Auto) 2.45 K/uL (1.2-3.4) Monocytes # (Auto) 1.25 K/uL (0.11-0.59) Eosinophils # (Auto) 0.12 K/uL (0-0.5) Basophils # (Auto) 0.04 K/uL (0-0.2) RDW Standard Deviation 39.6 fL (36.4-46.3) RDW Coefficient of Variation 12.4 % (11.5-14.5) Immature Granulocyte % (Auto) 2.2 % Immature Granulocyte # (Auto) 0.36 K/uL (0.00-0.02) Nucleated RBC Absolute Count (auto) 0.00 K/uL (0-0) Nucleated Red Blood Cells % 0.0 % Absolute Reticulocyte Count 0.06 10^6/uL (0.02-0.10) Percent Reticulocyte Count 1.5 % (0.5-2.0) Prothrombin Time 12.0 SECONDS (9.0-12.0) Prothromb Time International Ratio 1.1 (0.9-1.1) Activated Partial Thromboplast Time 29.3 SECONDS (21.0-31.0) Partial Thromboplastin Ratio 1.1 Iron Level 22 mcg/dl (35-175) Total Iron Binding Capacity 213 mcg/dl (250-450) Transferrin 165 mg/dl (200-360) Transferrin % Saturation 10 % (20-50) Ferritin 454.8 ng/ml (8.0-388.0) Vitamin B12 Level 573 pg/mL (211-911) Folate 17.25 ng/mL (>5.38) Rheumatoid Factor < 10.0 U/mL (0-15) Date/Time Source Procedure Growth Status 08/30/16 20:40 Blood Blood Culture Pending Received Last 24 Hours Test 08/30/16 20:40 08/30/16 20:45 08/31/16 05:30 08/31/16 14:13 White Blood Count 15.81 K/uL 16.16 K/uL Red Blood Count 4.37 M/uL 4.43 M/uL Hemoglobin 12.7 g/dL 13.2 g/dL Hematocrit 37.8 % 38.9 % Mean Corpuscular Volume 86.5 fL 87.8 fL Mean Corpuscular Hemoglobin 29.1 pg 29.8 pg Mean Corpuscular Hemoglobin Concent 33.6 g/dl 33.9 g/dl Platelet Count 547 K/uL 490 K/uL Mean Platelet Volume 9.1 fL 9.3 fL Neutrophils (%) (Auto) 71.7 % 74.0 % Lymphocytes (%) (Auto) 18.5 % 15.2 % Monocytes (%) (Auto) 6.6 % 7.7 % Eosinophils (%) (Auto) 1.2 % 0.7 % Basophils (%) (Auto) 0.2 % 0.2 % Neutrophils # (Auto) 11.35 K/uL 11.94 K/uL Lymphocytes # (Auto) 2.92 K/uL 2.45 K/uL Monocytes # (Auto) 1.04 K/uL 1.25 K/uL Eosinophils # (Auto) 0.19 K/uL 0.12 K/uL Basophils # (Auto) 0.03 K/uL 0.04 K/uL RDW Standard Deviation 38.7 fL 39.6 fL RDW Coefficient of Variation 12.1 % 12.4 % Immature Granulocyte % (Auto) 1.8 % 2.2 % Immature Granulocyte # (Auto) 0.28 K/uL 0.36 K/uL Erythrocyte Sedimentation Rate 59 mm/hr Urine Color YELLOW Urine Appearance CLEAR Urine pH 6.0 Urine Specific [place] 1.020 Urine Protein NEG Urine Glucose (UA) NEG Urine Ketones NEG Urine Occult Blood NEG Urine Nitrite NEG Urine Bilirubin NEG Urine Urobilinogen NEG Urine Leukocyte Esterase NEG Sodium Level 138 mmol/L Potassium Level 4.1 mmol/L Chloride Level 103 mmol/L Carbon Dioxide Level 29 mmol/L Anion Gap 6.0 mmol/L Blood Urea Nitrogen 20 mg/dl Creatinine 0.83 mg/dl Est Creatinine Clear Calc Drug Dose 133.4 ml/min Estimated GFR () 145.8 Estimated GFR (Non- 125.8 BUN/Creatinine Ratio 23.9 Random Glucose 100 mg/dl Calcium Level 9.4 mg/dl Total Bilirubin 0.3 mg/dl Direct Bilirubin < 0.1 mg/dl Aspartate Amino Transf (AST/SGOT) 26 U/L Alanine Aminotransferase (ALT/SGPT) 70 U/L Alkaline Phosphatase 77 U/L C-Reactive Protein 15.30 mg/dl Total Protein 7.9 gm/dl Albumin 3.0 gm/dl Bedside Lactic Acid Venous 1.16 mmol/L Absolute Reticulocyte Count 0.06 10^6/uL Percent Reticulocyte Count 1.5 % Prothrombin Time 12.0 SECONDS Prothromb Time International Ratio 1.1 Activated Partial Thromboplast Time 29.3 SECONDS Partial Thromboplastin Ratio 1.1 Iron Level 22 mcg/dl Total Iron Binding Capacity 213 mcg/dl Transferrin 165 mg/dl Transferrin % Saturation 10 % Ferritin 454.8 ng/ml Vitamin B12 Level 573 pg/mL Folate 17.25 ng/mL Rheumatoid Factor < 10.0 U/mL Date/Time Source Procedure Growth Status 08/30/16 20:40 Blood Blood Culture Pending Received 08/30/16 20:40 Blood Blood Culture Pending Received Assessment & Plan 20 yo M recently 3 months ago, who presents with inflamed joints including a R knee effusion and profound neck stiffness along with constitutional symptoms including 15 lb weight loss, night sweats and fevers for the past two months. 1. Arthritis-h/o Lyme disease (records unavailable) 2-5 years ago that was treated with homeopathic medications only two years ago. 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 He then got a R knee effusion with decreased ROM and still has this. He was given two weeks of doxycycline by an outpatient provider in [place]. Knee effusion was aspirated on 08/21 revealing 28K WBC compared with 3K RBC. Many WBCs but no organisms were seen. He underwent an LP which was negative for WBCs or presence of bacteria but positive for Lyme IgG Ab, having known Lyme in the past. At the time of the LP, he had already been on two weeks of doxy from an outpatient provider and reports going to the ER because he didn't feel the doxy was working. He left with another week of amoxicillin and prednisone, but continued to worsen after a week. He also reports ringing in his ears but there is no cranial nerve palsy that is present. The differential diagnosis includes but is not limited to reactive arthritis 2/ 2 poss infection-GC/chlamydia (newly , but patient already treated with two weeks of doxy so may skew results of testing, pt and deny rash or genital discharge, pt did report inguinal LNs at one point), Ankylosing spondylitis, Infectious arthritis (no orgs were seen on synovial fluid analysis despite high WBCs so infectious less likely, moreso inflammatory), SLE (fevers, weight loss and arthritis), Angiostrongylus cantonensis infection (considered but no eos on peripheral or CSF analysis and no h/o eating snails or undercooked mollusks/shellfish while in [place]). He could be newly with GC/ Chlamydia infection so will screen for this with first catch urine NAAT in the morning. HIV another possibility and consented. Inflammatory arthritis is clearly present with SI joint and neck involvement, enthesitis (soles of feet), and dactylitis (toes) so factor a seronegative spondyloarthropathy as the cause with or reactive arthritis top on the list. Will continue with NSAIDs and await further eval/recs from Rheumatology who was consulted. Will also consult ID for assistance with Lyme issue. 2. Leukocytosis 2/2 above. DVT proph-not indicated, ambulatory FULL CODE Dispo-med/surg DO [facility] Consultants: Rheum, ID Current Inpatient Medications: Current Inpatient Medications Medications (Trade) Dose Ordered Sig/Jesus Route Start Time Stop Time Status Last Admin Dose Admin Gadobutrol (Gadavist) 7 mmol UD PRN IV 08/30/16 22:30 09/03/16 22:29 Ketorolac Tromethamine (Toradol Inj) 30 mg Q6H PRN IV 08/31/16 01:30 09/05/16 01:29 Ibuprofen (Advil Tab) 400 mg Q6H PRN PO 08/31/16 01:30 09/30/16 01:29 08/31/16 13:30 400 MG Tramadol HCl (Ultram Tab) 25 mg Q6H PRN PO 08/31/16 01:30 09/30/16 01:29 08/31/16 09:34 25 MG Acetaminophen (Tylenol Tab) 650 mg Q6H PRN PO 08/31/16 01:30 09/30/16 01:29 Ondansetron HCl (Zofran Inj) 4 mg Q6H PRN IV 08/31/16 02:15 09/30/16 02:14 Cyclobenzaprine HCl (Flexeril Tab) 5 mg TID PRN PO 08/31/16 02:30 09/30/16 02:29 Miscellaneous (Ppd Check) 1 ea Q48H N/A 09/02/16 08:00 09/02/16 08:01 Miscellaneous (Iv Fluids Completed) 1 ea PRN PRN N/A 08/31/16 03:15 08/31/17 03:14
--- NOTE | 2016-08-31 19:37 | DIAGNOSTIC IMAGING REPORT ---
RIGHT FOOT 3 VIEWS CLINICAL HISTORY: Joint pain and inflammation. FINDINGS: 3 views of the right foot are obtained. No prior studies are available for comparison at the time of dictation. The skeletal structures are well mineralized. No fracture is seen. The joint spaces of the foot are well-maintained. No erosive change is identified. The overlying soft tissues are within normal limits. IMPRESSION: Unremarkable radiographic assessment of the right foot. Electronically signed by: Evin Enriquez M.D. 08/31/2016 7:35 PM Dictated Date/Time: 08/31/2016 7:34 PM
--- NOTE | 2016-08-31 19:38 | DIAGNOSTIC IMAGING REPORT ---
RIGHT KNEE 2 VIEWS CLINICAL HISTORY: Joint pain and inflammation. FINDINGS: AP and crosstable lateral views of the right knee are obtained. No prior studies are available for comparison at the time of dictation. The skeletal structures are well mineralized. No fracture is seen. The joint spaces are well-maintained. No erosive change is seen. There is a large joint effusion and soft tissue swelling is present around the knee. A bone island is suggested in the lateral tibial plateau. IMPRESSION: 1. No acute bony abnormality is identified. 2. Large joint effusion and soft tissue swelling. Electronically signed by: Evin Enriquez M.D. 08/31/2016 7:37 PM Dictated Date/Time: 08/31/2016 7:36 PM
--- NOTE | 2016-08-31 19:40 | DIAGNOSTIC IMAGING REPORT ---
SACRUM AND SACROILIAC JOINTS 3 VIEWS CLINICAL HISTORY: Bilateral sacroiliac joint pain. FINDINGS: 3 views of the sacrum and sacroiliac joints are obtained. No prior studies are available for comparison at the time of dictation. The skeletal structures are well mineralized. No fracture is seen. The sacroiliac joints are normal in appearance. The pubic symphysis is normal as visualized. The remainder of the visualized bony pelvis is unremarkable. The overlying soft tissues are normal in appearance. IMPRESSION: Unremarkable radiographic assessment of the sacrum and sacroiliac joints. Electronically signed by: Evin Enriquez M.D. 08/31/2016 7:38 PM Dictated Date/Time: 08/31/2016 7:37 PM
--- NOTE | 2016-08-31 19:41 | DIAGNOSTIC IMAGING REPORT ---
LUMBAR SPINE 5 VIEWS CLINICAL HISTORY: Low back pain. Sacroiliac joint pain. FINDINGS: 5 views of the lumbar spine are obtained. No prior studies are available for comparison at the time of dictation. The skeletal structures are well mineralized. There is no radiographic evidence of fracture or malalignment. Vertebral body height and alignment are maintained. The transverse and spinous processes are intact. There is no evidence of spondylolysis. The intervertebral disc spaces are well-maintained. The visualized bony pelvis appears intact. There is a nonobstructed abdominal bowel gas pattern. Moderate constipation is observed. IMPRESSION: Unremarkable radiographic evaluation of the lumbosacral spine. Electronically signed by: Evin Enriquez M.D. 08/31/2016 7:39 PM Dictated Date/Time: 08/31/2016 7:38 PM
--- NOTE | 2016-08-31 19:42 | DIAGNOSTIC IMAGING REPORT ---
LEFT FOOT 3 VIEWS CLINICAL HISTORY: Joint pain and inflammation. FINDINGS: 3 views of the left foot are obtained. No prior studies are available for comparison at the time of dictation. The skeletal structures are well mineralized. No fracture is seen. The joint spaces of the foot are well-maintained. No erosive change is identified. The overlying soft tissues are within normal limits. IMPRESSION: Unremarkable radiographic assessment of the left foot. Electronically signed by: Evin Enriquez M.D. 08/31/2016 7:40 PM Dictated Date/Time: 08/31/2016 7:40 PM
[2016-08-31 22:53] VITALS: BP 102/65; PULSE 89; TEMP 36.8; O2SAT 95
[2016-09-01] VITALS: O2SAT 96
[2016-09-01] MEDS: KETOROLAC TROMETHAMINE 30 MG/ML VIAL IV SCH ×4 (03:23→20:54)
[2016-09-01] MEDS ORDERED: GADAVIST IV PRN (03:30)
[2016-09-01 06:51] LABS: BASO % 0.5 %; BASO ABS # 0.05 K/uL (0-0.2); COMPLETE YES; EOS % 3.3 %; HEMATOCRIT 37.4 % (42-52); IG% 2.1 %; LYMPH % 24.4 %; LYMPH ABS # 2.65 K/uL (1.2-3.4); MEAN CELL VOLUME 88.4 fL (80-100); MEAN CORPUSCULAR HEMOGLOBIN 28.8 pg (25-34); MEAN CORPUSCULAR HGB CONC 32.6 g/dl (32-36); MEAN PLATELET VOLUME 9.3 fL (7.4-10.4); MONO % 7.9 %; NEUT % 61.8 %; PLATELET COUNT 446 K/uL (130-400); RED BLOOD COUNT 4.23 M/uL (4.7-6.1); WHITE BLOOD COUNT 10.84 K/uL (4.8-10.8)
[2016-09-01 07:00] LABS: BLOOD UREA NITROGEN 17 mg/dl (7-18); BUN/CREATININE RATIO 22.2 (10-20); CALCIUM 9.5 mg/dl (8.5-10.1); CARBON DIOXIDE 28 mmol/L (21-32); CHLORIDE 104 mmol/L (98-107); CREATININE 0.76 mg/dl (0.60-1.40); GLUCOSE 82 mg/dl (70-99); POTASSIUM 4.3 mmol/L (3.5-5.1); SODIUM 139 mmol/L (136-145)
--- NOTE | 2016-09-01 07:01 | DIAGNOSTIC IMAGING REPORT ---
MRI OF THE BRAIN WITHOUT AND WITH IV CONTRAST CLINICAL HISTORY: headache for 2 months COMPARISON STUDY: No previous studies for comparison. TECHNIQUE: MRI of the brain was performed from the vertex to the skull base utilizing various T1 and T2 weighted sequences. Following the IV administration of 6.5 mL of Gadavist contrast, additional enhanced images were obtained. FINDINGS: Sagittal T1, axial diffusion, proton density and T2 weighted axial, coronal FLAIR, and pre and post axial T1-weighted images were acquired. These were supplemented with post gadolinium coronal T1 weighted images. No intra or extra-axial mass lesions are visualized. Axial diffusion-weighted images reveal no evidence of acute or subacute infarction. There is no evidence of ventricular dilatation. Proton density T2-weighted and FLAIR images reveal a 4 mm ovoid focus of increased T2 signal within the left occipital white matter. This parallels CSF intensity and likely represents a prominent CSF space. There are no abnormal flow voids. There is no evidence of pathologic enhancement. IMPRESSION: 4 mm focus of increased T2 signal within the left occipital white matter. This parallels CSF intensity and likely represents a prominent CSF space. Otherwise normal study. Electronically signed by: Elliott Carrillo M.D. 09/01/2016 7:00 AM Dictated Date/Time: 09/01/2016 6:56 AM
[2016-09-01 07:36] VITALS: BP 97/62; PULSE 67; TEMP 36.5; O2SAT 98
--- NOTE | 2016-09-01 15:37 | Progress Note ---
Medicine Progress Note Date & Time of Visit: Sep 01, 2016 at 14:34. Subjective 20 yo M recently 3 months ago, who presents with inflamed joints including a R knee effusion and profound neck stiffness along with constitutional symptoms including 15 lb weight loss, night sweats and fevers for the past two months. -tolerating PO -ambulatory -still with severe neck stiffness and decreased ROM -some improvement in pain overnight with Toradol but not much -still awaiting ID and Rheum evaluations. Objective Last 8 Hrs Date Time Temp Pulse Resp B/P (MAP) Pulse Ox O2 Delivery O2 Flow Rate FiO2 09/01/16 08:00 Room Air 09/01/16 08:00 Room Air 09/01/16 07:47 Room Air 09/01/16 07:36 36.5 67 18 97/62 (74) 98 Room Air Physical Exam: GEN: WNWD, in no acute distress, alert and appropriate HEENT: NC/AT, normal sclerae, MMM, No eye irritation noted NECK: no sternoclavicular joint enlargement. Very limited flexion, rotation and sidebending both active and passive ROM with passive movement a little bit better than active. CARDIO: reg rate, S1/2 heard without m/g/r LUNGS: CTA bilaterally, no crackles, rales or wheezes, good diaphragmatic excursion ABD: soft, non-tender, non-distended, no rebound or guarding, +BS EXTREMITY: RP and DP palpable 2+ bilat, no LE swelling or edema, extremities are warm and well-perfused RLE: 1st and 3rd toe enlarged and swollen with TTP, knee with ballotable effusion and restricted ROM-all improved today LLE: 1st and 2nd toe enlarged and swollen with TTP. RUE/LUE: no other painful, tender or swollen joints. BACK: pain in SI joints to palpation NEURO: CN 2-12 intact, sensation intact throughout MUSC: 5/5 strength throughout, no focal deficits SKIN: warm and dry, no rashes Laboratory Results: 09/01/16 06:08 Red Blood Count 4.23, Mean Corpuscular Volume 88.4, Mean Corpuscular Hemoglobin 28.8, Mean Corpuscular Hemoglobin Concent 32.6, Mean Platelet Volume 9.3, Neutrophils (%) (Auto) 61.8, Lymphocytes (%) (Auto) 24.4, Monocytes (%) (Auto) 7.9, Eosinophils (%) (Auto) 3.3, Basophils (%) (Auto) 0.5, Neutrophils # (Auto) 6.69, Lymphocytes # (Auto) 2.65, Monocytes # (Auto) 0.86, Eosinophils # (Auto) 0.36, Basophils # (Auto) 0.05 09/01/16 06:08 Test 08/30/16 20:40 08/30/16 20:45 08/31/16 05:30 09/01/16 00:00 Urine Color YELLOW Urine Appearance CLEAR (CLEAR) Urine pH 6.0 (4.5-7.5) Urine Specific Burkett 1.020 (1.000-1.030) Urine Protein NEG (NEG) Urine Glucose (UA) NEG (NEG) Urine Ketones NEG (NEG) Urine Occult Blood NEG (NEG) Urine Nitrite NEG (NEG) Urine Bilirubin NEG (NEG) Urine Urobilinogen NEG (NEG) Urine Leukocyte Esterase NEG (NEG) Total Bilirubin 0.3 mg/dl (0.2-1) Direct Bilirubin < 0.1 mg/dl (0-0.2) Aspartate Amino Transf (AST/SGOT) 26 U/L (15-37) Alanine Aminotransferase (ALT/SGPT) 70 U/L (12-78) Alkaline Phosphatase 77 U/L (45-117) Total Protein 7.9 gm/dl (6.4-8.2) Albumin 3.0 gm/dl (3.4-5.0) Bedside Lactic Acid Venous 1.16 mmol/L (0.90-1.70) Nucleated RBC Absolute Count (auto) 0.00 K/uL (0-0) Nucleated Red Blood Cells % 0.0 % Peripheral Blood Smear Path Consult Absolute Reticulocyte Count 0.06 10^6/uL (0.02-0.10) Percent Reticulocyte Count 1.5 % (0.5-2.0) Prothrombin Time 12.0 SECONDS (9.0-12.0) Prothromb Time International Ratio 1.1 (0.9-1.1) Activated Partial Thromboplast Time 29.3 SECONDS (21.0-31.0) Partial Thromboplastin Ratio 1.1 Iron Level 22 mcg/dl (35-175) Total Iron Binding Capacity 213 mcg/dl (250-450) Transferrin 165 mg/dl (200-360) Transferrin % Saturation 10 % (20-50) Ferritin 454.8 ng/ml (8.0-388.0) Vitamin B12 Level 573 pg/mL (211-911) Folate 17.25 ng/mL (>5.38) Rheumatoid Factor < 10.0 U/mL (0-15) Stool Occult Blood NEGATIVE (NEGATIVE) Test 09/01/16 06:08 White Blood Count 10.84 K/uL (4.8-10.8) Red Blood Count 4.23 M/uL (4.7-6.1) Hemoglobin 12.2 g/dL (14.0-18.0) Hematocrit 37.4 % (42-52) Mean Corpuscular Volume 88.4 fL (80-100) Mean Corpuscular Hemoglobin 28.8 pg (25-34) Mean Corpuscular Hemoglobin Concent 32.6 g/dl (32-36) Platelet Count 446 K/uL (130-400) Mean Platelet Volume 9.3 fL (7.4-10.4) Neutrophils (%) (Auto) 61.8 % Lymphocytes (%) (Auto) 24.4 % Monocytes (%) (Auto) 7.9 % Eosinophils (%) (Auto) 3.3 % Basophils (%) (Auto) 0.5 % Neutrophils # (Auto) 6.69 K/uL (1.4-6.5) Lymphocytes # (Auto) 2.65 K/uL (1.2-3.4) Monocytes # (Auto) 0.86 K/uL (0.11-0.59) Eosinophils # (Auto) 0.36 K/uL (0-0.5) Basophils # (Auto) 0.05 K/uL (0-0.2) RDW Standard Deviation 39.8 fL (36.4-46.3) RDW Coefficient of Variation 12.5 % (11.5-14.5) Immature Granulocyte % (Auto) 2.1 % Immature Granulocyte # (Auto) 0.23 K/uL (0.00-0.02) Erythrocyte Sedimentation Rate 60 mm/hr (0-14) Anion Gap 7.0 mmol/L (3-11) Est Creatinine Clear Calc Drug Dose 143.1 ml/min Estimated GFR () > 150.0 Estimated GFR (Non- 130.4 BUN/Creatinine Ratio 22.2 (10-20) Calcium Level 9.5 mg/dl (8.5-10.1) C-Reactive Protein 14.60 mg/dl (0-0.29) HIV (1&2) Ab and P24 Ag, 4th Gener NEG (NEG) Date/Time Source Procedure Growth Status 08/30/16 20:40 Blood Blood Culture - Preliminary NO GROWTH TO DATE. Resulted Last 24 Hours Test 09/01/16 00:00 09/01/16 06:08 Stool Occult Blood NEGATIVE White Blood Count 10.84 K/uL Red Blood Count 4.23 M/uL Hemoglobin 12.2 g/dL Hematocrit 37.4 % Mean Corpuscular Volume 88.4 fL Mean Corpuscular Hemoglobin 28.8 pg Mean Corpuscular Hemoglobin Concent 32.6 g/dl Platelet Count 446 K/uL Mean Platelet Volume 9.3 fL Neutrophils (%) (Auto) 61.8 % Lymphocytes (%) (Auto) 24.4 % Monocytes (%) (Auto) 7.9 % Eosinophils (%) (Auto) 3.3 % Basophils (%) (Auto) 0.5 % Neutrophils # (Auto) 6.69 K/uL Lymphocytes # (Auto) 2.65 K/uL Monocytes # (Auto) 0.86 K/uL Eosinophils # (Auto) 0.36 K/uL Basophils # (Auto) 0.05 K/uL RDW Standard Deviation 39.8 fL RDW Coefficient of Variation 12.5 % Immature Granulocyte % (Auto) 2.1 % Immature Granulocyte # (Auto) 0.23 K/uL Erythrocyte Sedimentation Rate 60 mm/hr Sodium Level 139 mmol/L Potassium Level 4.3 mmol/L Chloride Level 104 mmol/L Carbon Dioxide Level 28 mmol/L Anion Gap 7.0 mmol/L Blood Urea Nitrogen 17 mg/dl Creatinine 0.76 mg/dl Est Creatinine Clear Calc Drug Dose 143.1 ml/min Estimated GFR () > 150.0 Estimated GFR (Non- 130.4 BUN/Creatinine Ratio 22.2 Random Glucose 82 mg/dl Calcium Level 9.5 mg/dl C-Reactive Protein 14.60 mg/dl HIV (1&2) Ab and P24 Ag, 4th Gener NEG Assessment & Plan 20 yo M recently 3 months ago, who presents with inflamed joints including a R knee effusion and profound neck stiffness along with constitutional symptoms including 15 lb weight loss, night sweats and fevers for the past two months. 1. Arthritis-h/o Lyme disease (records unavailable) 2-5 years ago that was treated with homeopathic medications only two years ago. 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 After the toe joint inflammation, he then developed a R knee effusion with decreased ROM and still has this currently--better after Toradol started yesterday. He was given two weeks of doxycycline by an outpatient provider in [place]. Knee effusion was aspirated on 08/21 revealing 28K WBC compared with 3K RBC. Many WBCs but no organisms were seen. He underwent an LP which was negative for WBCs or presence of bacteria but positive for Lyme IgG Ab , having known Lyme in the past. At the time of the LP, he had already been on two weeks of doxy from an outpatient provider and reports going to the ER because he didn't feel the doxy was working. He left with another week of amoxicillin and prednisone, but continued to worsen after a week. He also reports ringing in his ears and a sensitivity to sound, but there is no overt cranial nerve palsy that is present. The differential diagnosis includes but is not limited to reactive arthritis 2/ 2 poss infection-GC/chlamydia (newly , but patient already treated with two weeks of doxy so may skew results of testing, pt and deny rash or genital discharge, pt did report inguinal LNs at one point, no current LAD), Ankylosing spondylitis, Infectious arthritis (no orgs were seen on synovial fluid analysis despite high WBCs so infectious less likely, moreso inflammatory) , SLE (fevers, weight loss and arthritis), Angiostrongylus cantonensis infection (considered but no eos on peripheral or CSF analysis and no h/o eating snails or undercooked mollusks/shellfish while in [place]). Labwork sent off this morning for initial workup. CRP slightly decreased and WBC resolved on scheduled toradol. Pt feels only slightly better. Noticeable improvement in his joints and decreased knee effusion with increased ROM was noted on exam today. Inflammatory arthritis is clearly present with SI joint and neck involvement, enthesitis (soles of feet), and dactylitis (toes) so factor a seronegative spondyloarthropathy as the cause with or reactive arthritis top on the list. Will continue with NSAIDs and await further eval/recs from Rheumatology who was consulted. Will also consult ID for assistance with Lyme issue. There is still a question of whether or not he needs further antibiotics. DVT proph-not indicated, ambulatory FULL CODE Dispo-med/surg DO [facility] Hospital[facility] Consultants: Rheum, ID Current Inpatient Medications: Current Inpatient Medications Medications (Trade) Dose Ordered Sig/Jesus Route Start Time Stop Time Status Last Admin Dose Admin Gadobutrol (Gadavist) 7 mmol UD PRN IV 08/30/16 22:30 09/03/16 22:29 Ketorolac Tromethamine (Toradol Inj) 30 mg Q6H PRN IV 08/31/16 01:30 09/05/16 01:29 08/31/16 22:21 30 MG Tramadol HCl (Ultram Tab) 25 mg Q6H PRN PO 08/31/16 01:30 09/30/16 01:29 08/31/16 09:34 25 MG Acetaminophen (Tylenol Tab) 650 mg Q6H PRN PO 08/31/16 01:30 09/30/16 01:29 Ondansetron HCl (Zofran Inj) 4 mg Q6H PRN IV 08/31/16 02:15 09/30/16 02:14 Cyclobenzaprine HCl (Flexeril Tab) 5 mg TID PRN PO 08/31/16 02:30 09/30/16 02:29 Miscellaneous (Ppd Check) 1 ea Q48H N/A 09/02/16 08:00 09/02/16 08:01 Miscellaneous (Iv Fluids Completed) 1 ea PRN PRN N/A 08/31/16 03:15 08/31/17 03:14 Ketorolac Tromethamine (Toradol Inj) 30 mg Q6H IV 08/31/16 15:00 09/02/16 14:59 09/01/16 14:27 30 MG Gadobutrol (Gadavist) 6.5 mmol UD PRN IV 09/01/16 03:30 09/05/16 03:29
[2016-09-01 15:46] VITALS: BP 99/63; PULSE 69; TEMP 36.8; O2SAT 100
[2016-09-01] MEDS ORDERED: NURSING VERBAL MED ORDER ONE ×2 (17:30→19:15)
[2016-09-01] MEDS ORDERED: LIDOCAINE HCL 1% 20 ML VIAL ONE (17:56)
[2016-09-01] MEDS ORDERED: ETHYL CHLORIDE AER SPR 100 ML CAN EXT STA (18:11)
--- NOTE | 2016-09-01 18:47 | Rheumatology Consultation ---
Rheumatology Consultation Date of Consultation: Sep 01, 2016. Reason for Consultation: Consultation was requested patient is a 20-year-old female who has large right knee effusion stiff neck 15 pound weight loss and SI tenderness. History of Present Illness Patient is a 20-year-old male who began to have a stiff neck on the flight home from [place] about 2 months ago. He thought the stiff neck was from the flight. He then began to have great toe pain and swelling . He went to his primary who treated him as gout. The patient does not remember what it was but he took it two times a day Then he experienced an additive arthritis of his 3ed right and 2 ed left toe swelling. Then his knee became swollen and warm.It has been aspirated twice with negative for organisms and many poly. Outside lab. No cultures sent I reaspirated tonight: There was 60 cc class 2 fluid. I will send for gram stain , culture and sensitivity, crystals, and PCR lyme. Pertant labs: ESR of 59,wbc 16.1 with a left shift cr .76 xrays negative for Knee,foot spine and back for erosions Prior history Lyme [age] years age treated with homeopathic remedies Now with stiff neck, large effusion of his left knee and night sweats which drench the night clothes and fevers 101. 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) Review of Systems Constitutional: + fever, + sweats, No chills Respiratory: No see HPI, No cough, No sputum, No wheezing, No shortness of breath, No dyspnea on exertion, No dyspnea at rest, No hemoptysis, No problem reported Cardiac: No see HPI, No chest pain, No orthopnea, No PND, No edema, No claudication, No palpitations, No problem reported Breast: No see HPI, No breast lump, No change in shape, No nipple discharge, No breast pain, No problem reported Abdomen: No see HPI, No pain, No nausea, No vomiting, No diarrhea, No constipation, No GI bleeding, No problem reported Musculoskeletal: + see HPI, + joint pain Male : No see HPI, No dysuria, No urinary frequency, No incontinence, No nocturia more than once/night, No slowing stream, No hematuria, No sexual dysfunction, No problem reported Neurologic: No see HPI, No memory loss, No paralysis, No weakness, No numbness/ tingling, No vertigo, No balance problems, No problem reported Psychiatric: No see HPI, No depression symptoms, No anhedonism, No anxiety, No insomnia, No substance abuse, No problem reported Heme: No see HPI, No abnormal bleeding/bruising, No clotting problems, No swollen lymph nodes, No night sweats, No problem reported Endo: No see HPI, No fatigue, No excessive thirst, No excessive urination, No problem reported Skin: No see HPI, No rash, No itch, No new/changing skin lesions, No color change, No bleeding, No problem reported Allergies Coded Allergies: No Known Allergies (Unverified , 08/21/16) Medications Current Inpatient Medications Medications (Trade) Dose Ordered Sig/Jesus Route Start Time Stop Time Status Last Admin Dose Admin Gadobutrol (Gadavist) 7 mmol UD PRN IV 08/30/16 22:30 09/03/16 22:29 Ketorolac Tromethamine (Toradol Inj) 30 mg Q6H PRN IV 08/31/16 01:30 09/05/16 01:29 08/31/16 22:21 30 MG Tramadol HCl (Ultram Tab) 25 mg Q6H PRN PO 08/31/16 01:30 09/30/16 01:29 08/31/16 09:34 25 MG Acetaminophen (Tylenol Tab) 650 mg Q6H PRN PO 08/31/16 01:30 09/30/16 01:29 Ondansetron HCl (Zofran Inj) 4 mg Q6H PRN IV 08/31/16 02:15 09/30/16 02:14 Cyclobenzaprine HCl (Flexeril Tab) 5 mg TID PRN PO 08/31/16 02:30 09/30/16 02:29 Miscellaneous (Ppd Check) 1 ea Q48H N/A 09/02/16 08:00 09/02/16 08:01 Miscellaneous (Iv Fluids Completed) 1 ea PRN PRN N/A 08/31/16 03:15 08/31/17 03:14 Ketorolac Tromethamine (Toradol Inj) 30 mg Q6H IV 08/31/16 15:00 09/02/16 14:59 09/01/16 14:27 30 MG Gadobutrol (Gadavist) 6.5 mmol UD PRN IV 09/01/16 03:30 09/05/16 03:29 Physical Exam Date Time Temp Pulse Resp B/P (MAP) Pulse Ox O2 Delivery O2 Flow Rate FiO2 09/01/16 15:46 36.8 69 18 99/63 (75) 100 Room Air 09/01/16 08:00 Room Air 09/01/16 08:00 Room Air 09/01/16 07:47 Room Air 09/01/16 07:36 36.5 67 18 97/62 (74) 98 Room Air 09/01/16 00:00 96 Room Air 08/31/16 22:53 36.8 89 18 102/65 (77) 95 Room Air General Appearance: no apparent distress, + mild distress Eyes: bilateral eyes normal inspection ENT: normal ENT inspection, hearing grossly normal Neck: supple, no adenopathy, thyroid normal, no JVD Respiratory: chest non-tender, lungs clear, normal breath sounds Cardiovascular: regular rate, rhythm, no edema, no gallop Abdomen: normal bowel sounds, soft, no organomegaly Neurologic/Psychiatric: no motor/sensory deficits, alert, normal mood/affect, oriented x 3 Skin: no rash Lymphatic: no adenopathy Laboratory Results Last 24 Hours Test 09/01/16 00:00 09/01/16 06:08 Stool Occult Blood NEGATIVE White Blood Count 10.84 K/uL Red Blood Count 4.23 M/uL Hemoglobin 12.2 g/dL Hematocrit 37.4 % Mean Corpuscular Volume 88.4 fL Mean Corpuscular Hemoglobin 28.8 pg Mean Corpuscular Hemoglobin Concent 32.6 g/dl Platelet Count 446 K/uL Mean Platelet Volume 9.3 fL Neutrophils (%) (Auto) 61.8 % Lymphocytes (%) (Auto) 24.4 % Monocytes (%) (Auto) 7.9 % Eosinophils (%) (Auto) 3.3 % Basophils (%) (Auto) 0.5 % Neutrophils # (Auto) 6.69 K/uL Lymphocytes # (Auto) 2.65 K/uL Monocytes # (Auto) 0.86 K/uL Eosinophils # (Auto) 0.36 K/uL Basophils # (Auto) 0.05 K/uL RDW Standard Deviation 39.8 fL RDW Coefficient of Variation 12.5 % Immature Granulocyte % (Auto) 2.1 % Immature Granulocyte # (Auto) 0.23 K/uL Erythrocyte Sedimentation Rate 60 mm/hr Sodium Level 139 mmol/L Potassium Level 4.3 mmol/L Chloride Level 104 mmol/L Carbon Dioxide Level 28 mmol/L Anion Gap 7.0 mmol/L Blood Urea Nitrogen 17 mg/dl Creatinine 0.76 mg/dl Est Creatinine Clear Calc Drug Dose 143.1 ml/min Estimated GFR () > 150.0 Estimated GFR (Non- 130.4 BUN/Creatinine Ratio 22.2 Random Glucose 82 mg/dl Calcium Level 9.5 mg/dl C-Reactive Protein 14.60 mg/dl HIV (1&2) Ab and P24 Ag, 4th Gener NEG Assessment & Plan Assessment & Plan: Stiff neck,large knee effusion with fever and night sweats with a history of possible lyme treated with only homeopathic remedies, *ID consulted for infectious causes, Lyme, neisseria meningitis with arthritis and stiff neck although less likely with a gram stain negative * Autoimmune either reactive, or one of the HLA B 27 spondyloarthropathies. Labs ordered and depending on the ID input, an MRI of the SI joints with Stir images would assist in the diagnosis.Doubt vasculitis. I have aspirated 60 cc fluid under steril conditions and sent for gram stain, culture crystals and cell count and PCR Lyme. No additional specific therapy at this time. Currently on NSAID. Discussed with patient the possible risks of joint aspiration prior to aspiration. Patient in agreement .
[2016-09-01 18:56] LABS: SYNOVIAL FLUID APPEARANCE CLOUDY; SYNOVIAL FLUID COLOR YELLOW
[2016-09-01 23:57] VITALS: BP 95/54; PULSE 84; TEMP 36.6; O2SAT 98
[2016-09-02] MEDS: KETOROLAC TROMETHAMINE 30 MG/ML VIAL IV SCH ×2 (02:56→09:10)
[2016-09-02 07:14] VITALS: BP 101/62; PULSE 64; TEMP 36.4; O2SAT 100
[2016-09-02 07:45] VITALS: O2SAT 100
[2016-09-02] MEDS ORDERED: PPD CHECK SCH (08:00)
[2016-09-02 08:01] LABS: MEAN CELL VOLUME 88.3 fL (80-100); MEAN CORPUSCULAR HEMOGLOBIN 28.9 pg (25-34); MEAN CORPUSCULAR HGB CONC 32.7 g/dl (32-36); MEAN PLATELET VOLUME 9.4 fL (7.4-10.4); PLATELET COUNT 419 K/uL (130-400); RED BLOOD COUNT 4.19 M/uL (4.7-6.1); WHITE BLOOD COUNT 12.52 K/uL (4.8-10.8)
[2016-09-02 08:22] LABS: BUN/CREATININE RATIO 18.5 (10-20); C-REACTIVE PROTEIN 9.99 mg/dl (0-0.29); CALCIUM 9.5 mg/dl (8.5-10.1); CREATININE 0.79 mg/dl (0.60-1.40)
--- NOTE | 2016-09-02 11:05 | Rheumatology Progress Note ---
Subjective Date of Service Sep 02, 2016. Subjective Pt evaluation today including: conversation w/ patient, conversation w/ family , physical exam, chart review, lab review, review of studies Patient noted that he had more sweats last night, Knee is better less pain and less swelling less warmth neck still stiff. Pain in knee 2/10 stiff not achy no new joints involved. Review of Systems Musculoskeletal: + see HPI All Other Systems: Reviewed and Negative Objective Vital Signs Date Time Temp Pulse Resp B/P (MAP) Pulse Ox O2 Delivery O2 Flow Rate FiO2 09/02/16 07:45 100 Room Air 09/02/16 07:14 36.4 64 22 101/62 (75) 100 Room Air 09/02/16 00:15 Room Air 09/01/16 23:57 36.6 84 18 95/54 (68) 98 Room Air 09/01/16 16:00 Room Air 09/01/16 15:46 36.8 69 18 99/63 (75) 100 Room Air Physical Exam General Appearance: no apparent distress Eyes: PERRL ENT: normal ENT inspection Respiratory/Chest: lungs clear Cardiovascular: regular rate, rhythm Abdomen: normal bowel sounds Laboratory Results Last 24 Hours Test 09/01/16 18:05 09/01/16 19:40 09/02/16 07:20 Synovial Fluid Source KNEE Synovial Fluid Color YELLOW Synovial Fluid Appearance CLOUDY Synovial Fluid WBC 63552 /uL Synovial Fluid RBC < 3000 /uL Synovial Fluid Polynuclear WBCs % 75.0 % Synovial Fluid Mononuclear WBCs % 25.0 % White Blood Count 12.52 K/uL Red Blood Count 4.19 M/uL Hemoglobin 12.1 g/dL Hematocrit 37.0 % Mean Corpuscular Volume 88.3 fL Mean Corpuscular Hemoglobin 28.9 pg Mean Corpuscular Hemoglobin Concent 32.7 g/dl RDW Standard Deviation 39.2 fL RDW Coefficient of Variation 12.2 % Platelet Count 419 K/uL Mean Platelet Volume 9.4 fL Erythrocyte Sedimentation Rate 51 mm/hr Sodium Level 139 mmol/L Potassium Level 4.0 mmol/L Chloride Level 105 mmol/L Carbon Dioxide Level 26 mmol/L Anion Gap 8.0 mmol/L Blood Urea Nitrogen 15 mg/dl Creatinine 0.79 mg/dl Est Creatinine Clear Calc Drug Dose 137.7 ml/min Estimated GFR () 148.8 Estimated GFR (Non- 128.4 BUN/Creatinine Ratio 18.5 Random Glucose 75 mg/dl Calcium Level 9.5 mg/dl C-Reactive Protein 9.99 mg/dl Assessment and Plan Stiff neck/ arthritis non inflammatory of knee/ sweats/ increase WBC work up underway. *right knee aspiration wbc [id number] with a left shift. gram stain negative, cultures pending PCR lyme ordered. May need synovial biopsy to confirm possible Lyme await ID input. * Inflammatory reaction of the joints is possible without underlying autoimmune disease such as Ankylosing spondylitis. Uncommon to see sweats, increase serum WBC with a shift in primary autoimmune disease. * autoimmune w/u underway. I would recommend an :MRI of the SI joints with STIR Images. We would be looking for edema in the joint line with the T1 images. appropriate antibodies and markers ordered.
[2016-09-02 15:11] VITALS: BP 111/70; PULSE 79; TEMP 36.4; O2SAT 98
[2016-09-02 16:02] VITALS: O2SAT 98
--- NOTE | 2016-09-02 16:09 | Progress Note ---
Internal Med Progress Note Date of Service: Sep 02, 2016. Provider Documentation: SUBJECTIVE: Patient is feeling much better Overall pain in neck, shoulder joints has improved No fever spikes since admission. No SOB, cough, chest pain, diarrhea, abdominal pain, rash. OBJECTIVE: Vital Signs-as noted below Exam: GEN: AAOX3, no distress HEENT: No icterus NECK: Supple CARDIO: reg rate, S1/2 heard LUNGS: CTA bilaterally, no crackles, rales or wheezes, good diaphragmatic excursion ABD: soft, non-tender, non-distended, no rebound or guarding, +BS EXTREMITY: RP and DP palpable 2+ bilat, no LE swelling or edema, extremities are warm and well-perfused RLE: 1st and 3rd toe enlarged and swollen with TTP, knee with ballotable effusion and restricted ROM-all improved today LLE: 1st and 2nd toe enlarged and swollen with TTP. RUE/LUE: no other painful, tender or swollen joints. NEURO: CN 2-12 intact, sensation intact throughout MUSC: 5/5 strength throughout, no focal deficits SKIN: warm and dry, no rashes Lab data as noted below. ASSESSMENT & PLAN: 20 yo M recently 3 months ago, who presents with inflamed joints including a R knee effusion and profound neck stiffness along with constitutional symptoms including 15 lb weight loss, night sweats and fevers for the past two months. ARTHRITIS- Associated with weight loss, night sweats, low grade fever. Hx of lymes 2 years ago. Symptoms started 2 months ago after a trip of [place]--> Neck stiffness after flight, thought to be sec to long flight-->both great toes swelling, mild redness-->Received rx for gout by PCP with no improvement, but eventually swelling went down-->Right knee effusion with decreased ROM. Knee effusion was aspirated 08/21-28k WBC, no organisms. Was also treated with Doxycycline x [address] in [place]. He underwent an LP on 08/21/16 which was negative for WBCs or presence of bacteria but positive for Lyme IgG Ab, having known Lyme in the past. At the time of the LP, he had already been on two weeks of doxy from an outpatient provider and reports going to the ER because he didn't feel the doxy was working. He left with another week of amoxicillin and prednisone, but continued to worsen after a week -D/D- Infectious etiology- lymes ?, reactive arthritis, inflammatory arthritis -S/P Arthrocentesis- 12k WBC, gram stain negative. -Work up- HLA B27, MARILUZ, ANCA, Anti proteinase 3, Anti myeloperoxidase, Rheumatoid factor < 10; HIV negative, MRI brain- as above, X rays- no acute abnormalities found MRI sacral spine ordered by Rheumatology -Discussed with rheumatology . Awaiting ID inputs DISPOSITION Expected discharge home when stable Patient and eager to be discharged Have an appt with lymes clinic, ID specialist in [place] on Vital Signs: Date Time Temp Pulse Resp B/P (MAP) Pulse Ox O2 Delivery O2 Flow Rate FiO2 09/02/16 15:11 36.4 79 20 111/70 (84) 98 Room Air 09/02/16 07:45 100 Room Air 09/02/16 07:14 36.4 64 22 101/62 (75) 100 Room Air 09/02/16 00:15 Room Air 09/01/16 23:57 36.6 84 18 95/54 (68) 98 Room Air 09/01/16 16:00 Room Air Lab Results: Results Past 24 Hours Test 09/01/16 18:05 09/01/16 19:40 09/02/16 07:20 Range/Units Synovial Fluid Source KNEE Synovial Fluid Color YELLOW Synovial Fluid Appearance CLOUDY Synovial Fluid WBC 84463 0-200 /uL Synovial Fluid RBC < 3000 /uL Synovial Fluid Polynuclear WBCs % 75.0 % Synovial Fluid Mononuclear WBCs % 25.0 % White Blood Count 12.52 4.8-10.8 K/uL Red Blood Count 4.19 4.7-6.1 M/uL Hemoglobin 12.1 14.0-18.0 g/dL Hematocrit 37.0 42-52 % Mean Corpuscular Volume 88.3 80-100 fL Mean Corpuscular Hemoglobin 28.9 25-34 pg Mean Corpuscular Hemoglobin Concent 32.7 32-36 g/dl RDW Standard Deviation 39.2 36.4-46.3 fL RDW Coefficient of Variation 12.2 11.5-14.5 % Platelet Count 419 130-400 K/uL Mean Platelet Volume 9.4 7.4-10.4 fL Erythrocyte Sedimentation Rate 51 0-14 mm/hr Sodium Level 139 136-145 mmol/L Potassium Level 4.0 3.5-5.1 mmol/L Chloride Level 105 98-107 mmol/L Carbon Dioxide Level 26 21-32 mmol/L Anion Gap 8.0 3-11 mmol/L Blood Urea Nitrogen 15 7-18 mg/dl Creatinine 0.79 0.60-1.40 mg/dl Est Creatinine Clear Calc Drug Dose 137.7 ml/min Estimated GFR () 148.8 Estimated GFR (Non- 128.4 BUN/Creatinine Ratio 18.5 10-20 Random Glucose 75 70-99 mg/dl Calcium Level 9.5 8.5-10.1 mg/dl C-Reactive Protein 9.99 0-0.29 mg/dl Microbiology Results 09/01/16 Gram Stain - Final, Resulted 09/01/16 Bacterial Culture - Preliminary, Resulted NO GROWTH TO DATE.
[2016-09-02] MEDS: KETOROLAC TROMETHAMINE 30 MG/ML VIAL IV PRN ×2 (16:31→22:34)
[2016-09-03 00:23] VITALS: BP 101/58; PULSE 82; TEMP 36.8; O2SAT 97
--- NOTE | 2016-09-03 07:48 | Rheumatology Progress Note ---
Subjective Date of Service Sep 03, 2016. Subjective Pt evaluation today including: conversation w/ patient, conversation w/ family , physical exam, chart review, lab review, review of studies c/o still with ACOSTA requiring dilauded still withstiff neck. right knee has mod effusion that re-accumulated. not warm. no new joints involved still with sweats Objective Vital Signs Date Time Temp Pulse Resp B/P (MAP) Pulse Ox O2 Delivery O2 Flow Rate FiO2 09/03/16 00:23 36.8 82 18 101/58 (72) 97 Room Air 09/02/16 23:45 Room Air 09/02/16 16:02 98 Room Air 09/02/16 15:11 36.4 79 20 111/70 (84) 98 Room Air 09/02/16 07:45 100 Room Air Physical Exam Eyes: normal inspection ENT: normal ENT inspection Neck: supple, no adenopathy Respiratory/Chest: lungs clear Cardiovascular: regular rate, rhythm, no edema, no gallop Abdomen: non tender, soft Extremities: normal range of motion (except right knee due to mod effusion) Skin: normal color, no rash Lymphatic: no adenopathy Laboratory Results Last 24 Hours Test 09/03/16 06:19 Erythrocyte Sedimentation Rate 57 mm/hr C-Reactive Protein 9.73 mg/dl Assessment and Plan Stiff neck, ACOSTA needing Dilaudid with knee effusion -culture of right knee effusion was negative - WBC non inflammatory - ESR and CRP still high as expected, no need to repeat . -ordered MRI of SI joint to look for inflammation looking also for criteria for an early ankylosing spondylitis, low suspicion with clinical picture of ACOSTA, and increased WBC with left shift and sweats. Awaiting ID, may need BX of synovial fluid for Lyme.
[2016-09-03 07:52] VITALS: BP 107/69; PULSE 83; TEMP 36.6; O2SAT 100
[2016-09-03 08:00] VITALS: O2SAT 100
[2016-09-03] MEDS: KETOROLAC TROMETHAMINE 30 MG/ML VIAL IV PRN ×2 (08:05→14:23)
--- NOTE | 2016-09-03 09:21 | DIAGNOSTIC IMAGING REPORT ---
MRI THE SACROILIAC JOINTS NO CONTRAST CLINICAL HISTORY: SI joint pain COMPARISON STUDY: Conventional radiographic study the sacrum dated 08/31/2016 FINDINGS: Imaging was performed in the axial, sagittal, and paracoronal planes. There are no areas of marrow replacement to indicate neoplasm or occult fracture. There is mild T1 and T2 edema involving the inferior aspect of the left SI joint. There is minor muscular edema involving the left erector spinous muscle. IMPRESSION: 1. Mild T1 and T2 subchondral marrow edema involving the inferior aspect of the left SI joint. Findings are consistent with a unilateral sacroiliitis. 2. Minor muscular edema involving the left erector spinous muscle Electronically signed by: Elliott Carrillo M.D. 09/03/2016 9:20 AM Dictated Date/Time: 09/03/2016 9:07 AM
--- NOTE | 2016-09-03 09:29 | Medical Consult ---
Consultation Date of Consultation: Sep 03, 2016. Attending Physician: Pooja. Mann S Reason for Consultation: Probable Lyme disease History of Present Illness 20-year-old previously healthy male was well until approximately 2 months ago upon returning from a 2 week vacation in [place], when he developed onset neck stiffness and headache, joint pains with right knee swelling, toe pain, and generalized malaise. Denies any fever, pulmonary, gastrointestinal, or urinary complaints. He was eventually started on empiric treatment for Lyme disease with doxycycline which he did not tolerate well, and eventually went to the emergency room where lumbar puncture was performed, with negative CSF findings and negative Lyme PCR. He was treated with amoxicillin and prednisone, but symptoms persisted and patient has been admitted for further management. He continues to have significant headaches, back and neck pain along with recurrent right knee swelling. Aspirate shows elevated white blood cells in the synovial fluid. His Lyme serology shows a positive screening IgG, negative IgM, but negative Western blot assay. 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) Allergies Coded Allergies: No Known Allergies (Unverified , 08/21/16) Current Inpatient Medications Current Inpatient Medications Medications (Trade) Dose Ordered Sig/Jesus Route Start Time Stop Time Status Last Admin Dose Admin Gadobutrol (Gadavist) 7 mmol UD PRN IV 08/30/16 22:30 09/03/16 22:29 Ketorolac Tromethamine (Toradol Inj) 30 mg Q6H PRN IV 08/31/16 01:30 09/05/16 01:29 09/03/16 08:05 30 MG Tramadol HCl (Ultram Tab) 25 mg Q6H PRN PO 08/31/16 01:30 09/30/16 01:29 08/31/16 09:34 25 MG Acetaminophen (Tylenol Tab) 650 mg Q6H PRN PO 08/31/16 01:30 09/30/16 01:29 09/03/16 08:01 650 MG Ondansetron HCl (Zofran Inj) 4 mg Q6H PRN IV 08/31/16 02:15 09/30/16 02:14 Cyclobenzaprine HCl (Flexeril Tab) 5 mg TID PRN PO 08/31/16 02:30 09/30/16 02:29 Miscellaneous (Iv Fluids Completed) 1 ea PRN PRN N/A 08/31/16 03:15 08/31/17 03:14 Gadobutrol (Gadavist) 6.5 mmol UD PRN IV 09/01/16 03:30 09/05/16 03:29 Review of Systems All systems were reviewed and are negative except as per HPI Physical Exam Date Time Temp Pulse Resp B/P (MAP) Pulse Ox O2 Delivery O2 Flow Rate FiO2 09/03/16 07:52 36.6 83 20 107/69 (82) 100 Room Air 09/03/16 00:23 36.8 82 18 101/58 (72) 97 Room Air 09/02/16 23:45 Room Air 09/02/16 16:02 98 Room Air 09/02/16 15:11 36.4 79 20 111/70 (84) 98 Room Air General Appearance: WD/WN, no apparent distress Head: normocephalic, atraumatic Eyes: normal inspection, EOMI, sclerae normal ENT: normal ENT inspection, hearing grossly normal, pharynx normal Neck: supple, no adenopathy, thyroid normal, trachea midline Respiratory/Chest: chest non-tender, lungs clear, normal breath sounds, no respiratory distress, no accessory muscle use Cardiovascular: regular rate, rhythm, no gallop, no murmur Abdomen/GI: normal bowel sounds, non tender, soft, no organomegaly Back: normal inspection, no CVA tenderness Extremities/Musculoskelatal: no calf tenderness, normal capillary refill Neurologic/Psych: alert, oriented x 3 Skin: normal color, warm/dry, no rash Lymphatic: no adenopathy Laboratory Results RUN DATE: 09/01/16 [facility] LAB PAGE 1 RUN TIME: 1100 Specimen Inquiry PATIENT: TANNER LORA LOC: [facility] # : [id number] AGE/SX: 20/M ROOM: N275 REG : 09/01/[address]: Sheyla Abarca DO : 1995 BED: 2 DIS : STATUS: ADM IN TLOC: SPEC #: [id number] HOSSEIN: 08/30/16 STATUS: RES REQ #: [id number] RECD: 08/30/[address]: Piyush Martins MD SOURCE: BLOOD ENTR: 08/30/[address]: Sonya Breen, Assigned SPDESC: ORDERED: BLOOD CULTURE Procedure Result Verified Site BLD CULT Preliminary 09/01/16-1059 NO GROWTH TO DATE. Last 24 Hours Test 09/03/16 06:19 09/03/16 08:51 09/03/16 08:52 Erythrocyte Sedimentation Rate 57 mm/hr C-Reactive Protein 9.73 mg/dl Assessment & Plan Clinical picture not really compatible with diagnosis of Lyme disease as he has been symptomatic for 2 months, with negative Western blot serology, as well as with multiple joints involved with polyarthritis. Differential diagnosis includes inflammatory arthritis/autoimmune disease, and reactive arthritis including dengue, parvovirus, and EBV. have ordered additional serology studies , MRI of the spine pending. Case discussed with Dr. Garcia. Will follow.
--- NOTE | 2016-09-03 13:13 | Progress Note ---
Internal Med Progress Note Date of Service: Sep 03, 2016. Provider Documentation: SUBJECTIVE: Patient is feeling better. Overall pain in neck, shoulder joints has improved Headache + Right knee effusion - no change, Night sweats + No fever spikes since admission. No SOB, cough, chest pain, diarrhea, abdominal pain, rash. OBJECTIVE: Vital Signs-as noted below Exam: GEN: AAOX3, no distress HEENT: No icterus NECK: Supple CARDIO: reg rate, S1/2 heard LUNGS: CTA bilaterally, no crackles, rales or wheezes, good diaphragmatic excursion ABD: soft, non-tender, non-distended, no rebound or guarding, +BS EXTREMITY: RP and DP palpable 2+ bilat, no LE swelling or edema, extremities are warm and well-perfused RLE: 1st and 3rd toe enlarged and swollen with TTP, knee with ballotable effusion and restricted ROM-all improved today LLE: 1st and 2nd toe enlarged and swollen with TTP. RUE/LUE: no other painful, tender or swollen joints. NEURO: CN 2-12 intact, sensation intact throughout MUSC: 5/5 strength throughout, no focal deficits SKIN: warm and dry, no rashes Lab data as noted below. ASSESSMENT & PLAN: 20 yo M recently 3 months ago, who presents with inflamed joints including a R knee effusion and profound neck stiffness along with constitutional symptoms including 15 lb weight loss, night sweats and fevers for the past two months. RIGHT KNEE EFFUSION/LOW GRADE FEVER/NIGHT SWEATS/HEADACHE : Associated with weight loss, malaise x 2 months. Symptoms started 2 months ago after a trip of [place]--> Neck stiffness after flight, thought to be sec to long flight-->both great toes swelling, mild redness-->Received rx for gout by PCP with no improvement, but eventually swelling went down-->Right knee effusion with decreased ROM. Knee effusion was aspirated 08/21-28k WBC, no organisms. Was also treated with Doxycycline x [address] in [place]. He underwent an LP on 08/21/16 which was negative for WBCs or presence of bacteria but positive for Lyme IgG Ab, having known Lyme in the past. He left with another week of amoxicillin and prednisone , but continued to worsen after a week -Etiology- Unlikely Lymes with negative results including PCR. Arthritis- Autoimmune vs Reactive . Ankylosing spondylitis considered. -S/P Arthrocentesis - 12k WBC, gram stain negative. -Work up- HLA B27, MARILUZ, ANCA, Anti proteinase 3, Anti myeloperoxidase- pending , Rheumatoid factor < 10; HIV negative, MRI brain- as above, X rays- no acute abnormalities found. MRI sacral spine - 1. Mild T1 and T2 subchondral marrow edema involving the inferior aspect of the left SI joint. Findings are consistent with a unilateral sacroiliitis. 2. Minor muscular edema involving the left erector spinous muscle. -ID ordered - Dengue, Parvovirus, EBV, TB test ordered- pending -Discussed with rheumatology and Infectious disease. DISPOSITION Eager to be discharged home Discussed with Rheumatology and ID - okay to discharge with outpatient follow ups Will follow up the test results outpatient Vital Signs: Date Time Temp Pulse Resp B/P (MAP) Pulse Ox O2 Delivery O2 Flow Rate FiO2 09/03/16 08:00 100 Room Air 09/03/16 07:52 36.6 83 20 107/69 (82) 100 Room Air 09/03/16 00:23 36.8 82 18 101/58 (72) 97 Room Air 09/02/16 23:45 Room Air 09/02/16 16:02 98 Room Air 09/02/16 15:11 36.4 79 20 111/70 (84) 98 Room Air Lab Results: Results Past 24 Hours Test 09/03/16 06:19 09/03/16 09:29 Range/Units Erythrocyte Sedimentation Rate 57 0-14 mm/hr C-Reactive Protein 9.73 0-0.29 mg/dl
[2016-09-03] MEDS ORDERED: MTR600X PO (13:15)
--- NOTE | 2016-09-03 13:16 | Discharge Instructions ---
Discharge Instructions Date of Service Sep 03, 2016. Admission Reason for Admission: Ache In Joint Discharge Discharge Diagnosis / Problem: 1. Right knee effusion, unclear etiology Discharge Goals Goal(s): Diagnostic testing, Therapeutic intervention Activity Recommendations Activity Limitations: resume your previous activity (as tolerated prior to admission) . Instructions / Follow-Up Instructions / Follow-Up FOLLOW UP 1. Follow up with Dr Gomez on 09/08/16 at 10:15 AM ([place]) 2. Follow up with Dr Betty Garcia, Rheumatology in 1-2 weeks 3. Follow up with Dr Andres, Infectious Disease in 1 week Current Hospital Diet Patient's current hospital diet: Regular Diet Discharge Diet Recommended Diet: Regular Diet Pending Studies Studies pending at discharge: no Medical Emergencies . Who to Call and When: Medical Emergencies: If at any time you feel your situation is an emergency, please call 911 immediately. . Non-Emergent Contact Non-Emergency issues call your: Primary Care Provider . . "Provider Documentation" section prepared by Laly Mann. . VTE Core Measure Inpt VTE Proph given/why not?: Dedra Mccullough, SCD's
--- NOTE | 2016-09-03 13:20 | Discharge Summary ---
Discharge Summary Date of Service Sep 03, 2016. Discharge Summary Admission Date: Sep 01, 2016 at 08:17 Discharge Date: Sep 03, 2016 Discharge Disposition: Home Principal Diagnosis: 1. Right knee effusion/Arthritis, unclear etiology, rule out autoimmune disorder Procedures: Knee x ray Coccyx x ray Lumbar spine x ray MRI pelvis MRI brain MRI Cervical spine Consultations: Rheum, ID Pending Studies/Follow-Up: - HLA B27, MARILUZ, ANCA, Anti proteinase 3, Anti myeloperoxidase- pending - Dengue, Parvovirus, EBV, TB test ordered- pending Medication Reconciliation New Medications: Ibuprofen (Ibuprofen) 600 Mg Tab 600 MG PO Q6H for Pain, #20 TAB Discontinued Medications: Amoxicillin (Amoxil) 500 Mg Cap 500 MG PO TID, CAP BEGIN 08/22/16 X 30 DAYS Admission Information HPI (per Admitting provider): History of Present Illness 2 months ago, patient was in [place] with his on a vacation for 2 weeks. They were told by natives to be wary of rat lungworm disease. Shortly after returning to the [facility], patient developed generalized headache symptoms achy intermittent, joint aches, neck pain and shoulder pain, back pain, right knee pain, toe pain symptoms along with low-grade fever at home , chills, malaise, poor appetite later resulting in a 15 pound weight loss to date. No rash, no abdominal pain, no diarrhea/dysuria symptoms. Patient saw his PCP who according to patient did not have any answers for him. Patient consulted a local orthopedic doctor (Dr. Kumar) last month. Symptoms attributed to Lyme disease as per patient although initial outpatient Lyme test was normal. Orthopedic doctor prescribed Doxycycline month long course which patient stopped after 2 weeks because he felt it wasn't helping. Patient seen at the emergency room last week for persistent symptoms. Abnormal Lyme test noted. Right knee arthrocentesis done. Synovial WBC greater than 20,000 LP done yielding normal CSF results. Patient discharged on Amoxicillin and Prednisone course for possible Lyme arthritis. Patient returned to the emergency room with persistent worsening symptoms in the last few days. Physical Exam (per Admitting): General Appearance: + pertinent finding (slightly anxious, uncomfortable) Eyes: + pertinent finding (pale palpebral conjunctivae, dry mucosa) Neck: + pertinent finding (some limitation in neck motion) Respiratory/Chest: + decreased breath sounds Cardiovascular: regular rate, rhythm Abdomen/GI: soft Extremities/Musculoskelatal: + pertinent finding (tender, warm swelling right knee, pain on passive motion) Neurologic/Psych: alert Skin: + pallor Hospital Course 20 yo M recently 3 months ago, who presents with inflamed joints including a R knee effusion and profound neck stiffness along with constitutional symptoms including 15 lb weight loss, night sweats and fevers for the past two months. RIGHT KNEE EFFUSION/LOW GRADE FEVER/NIGHT SWEATS/HEADACHE : Associated with weight loss, malaise x 2 months. Symptoms started 2 months ago after a trip of [place]--> Neck stiffness after flight, thought to be sec to long flight-->both great toes swelling, mild redness-->Received rx for gout by PCP with no improvement, but eventually swelling went down-->Right knee effusion with decreased ROM. Knee effusion was aspirated 08/21-28k WBC, no organisms. Was also treated with Doxycycline x [address] in [place]. He underwent an LP on 08/21/16 which was negative for WBCs or presence of bacteria but positive for Lyme IgG Ab, having known Lyme in the past. He left with another week of amoxicillin and prednisone , but continued to worsen after a week -Etiology- Unlikely Lymes with negative results including PCR. Arthritis- Autoimmune vs Reactive . Ankylosing spondylitis considered. -S/P Arthrocentesis - 12k WBC, gram stain negative. -Work up- HLA B27, MARILUZ, ANCA, Anti proteinase 3, Anti myeloperoxidase- pending , Rheumatoid factor < 10; HIV negative, MRI brain- as above, X rays- no acute abnormalities found. MRI sacral spine - 1. Mild T1 and T2 subchondral marrow edema involving the inferior aspect of the left SI joint. Findings are consistent with a unilateral sacroiliitis. 2. Minor muscular edema involving the left erector spinous muscle. -ID ordered - Dengue, Parvovirus, EBV, TB test ordered- pending -Discussed with rheumatology and Infectious disease. DISPOSITION Eager to be discharged home Discussed with Rheumatology and ID - okay to discharge with outpatient follow ups Will follow up the test results outpatient Total time spent on discharge = 28 minutes This includes examination of the patient, discharge planning, medication reconciliation, and communication with other providers.
--- NOTE | 2016-09-03 13:26 | Discharge Summary ---
Discharge Summary Date of Service Sep 03, 2016. Discharge Summary Admission Date: Sep 01, 2016 at 08:17 Discharge Date: Sep 03, 2016 Discharge Disposition: Home Principal Diagnosis: 1. Right knee effusion/Arthritis, unclear etiology, rule out autoimmune disorder Procedures: Knee x ray Coccyx x ray Lumbar spine x ray MRI pelvis MRI brain MRI Cervical spine Consultations: Rheum, ID Pending Studies/Follow-Up: --HLA B27, MARILUZ, ANCA, Anti proteinase 3, Anti myeloperoxidase- pending --Dengue, Parvovirus, EBV, TB test ordered- pending FOLLOW UP- Instructions / Follow-Up FOLLOW UP 1. Follow up with Dr Gomez on 09/08/16 at 10:15 AM (Jose) 2. Follow up with Dr Betty Garcia, Rheumatology in 1-2 weeks 3. Follow up with Dr Andres, Infectious Disease in 1 week Medication Reconciliation New Medications: Ibuprofen (Ibuprofen) 600 Mg Tab 600 MG PO Q6H for Pain, #20 TAB Discontinued Medications: Amoxicillin (Amoxil) 500 Mg Cap 500 MG PO TID, CAP BEGIN 08/22/16 X 30 DAYS Admission Information HPI (per Admitting provider): History of Present Illness 2 months ago, patient was in [place] with his on a vacation for 2 weeks. They were told by natives to be wary of rat lungworm disease. Shortly after returning to the [facility], patient developed generalized headache symptoms achy intermittent, joint aches, neck pain and shoulder pain, back pain, right knee pain, toe pain symptoms along with low-grade fever at home , chills, malaise, poor appetite later resulting in a 15 pound weight loss to date. No rash, no abdominal pain, no diarrhea/dysuria symptoms. Patient saw his PCP who according to patient did not have any answers for him. Patient consulted a local orthopedic doctor (Dr. Kumar) last month. Symptoms attributed to Lyme disease as per patient although initial outpatient Lyme test was normal. Orthopedic doctor prescribed Doxycycline month long course which patient stopped after 2 weeks because he felt it wasn't helping. Patient seen at the emergency room last week for persistent symptoms. Abnormal Lyme test noted. Right knee arthrocentesis done. Synovial WBC greater than 20,000 LP done yielding normal CSF results. Patient discharged on Amoxicillin and Prednisone course for possible Lyme arthritis. Patient returned to the emergency room with persistent worsening symptoms in the last few days. Physical Exam (per Admitting): General Appearance: + pertinent finding (slightly anxious, uncomfortable) Eyes: + pertinent finding (pale palpebral conjunctivae, dry mucosa) Neck: + pertinent finding (some limitation in neck motion) Respiratory/Chest: + decreased breath sounds Cardiovascular: regular rate, rhythm Abdomen/GI: soft Extremities/Musculoskelatal: + pertinent finding (tender, warm swelling right knee, pain on passive motion) Neurologic/Psych: alert Skin: + pallor Hospital Course 20 yo M recently 3 months ago, who presents with inflamed joints including a R knee effusion and profound neck stiffness along with constitutional symptoms including 15 lb weight loss, night sweats and fevers for the past two months. RIGHT KNEE EFFUSION/LOW GRADE FEVER/NIGHT SWEATS/HEADACHE : Associated with weight loss, malaise x 2 months. Symptoms started 2 months ago after a trip of [place]--> Neck stiffness after flight, thought to be sec to long flight-->both great toes swelling, mild redness-->Received rx for gout by PCP with no improvement, but eventually swelling went down-->Right knee effusion with decreased ROM. Knee effusion was aspirated 08/21-28k WBC, no organisms. Was also treated with Doxycycline x [address] in [place]. He underwent an LP on 08/21/16 which was negative for WBCs or presence of bacteria but positive for Lyme IgG Ab, having known Lyme in the past. He left with another week of amoxicillin and prednisone , but continued to worsen after a week -Etiology- Unlikely Lymes with negative results including PCR. Arthritis- Autoimmune vs Reactive . Ankylosing spondylitis considered. -S/P Arthrocentesis - 12k WBC, gram stain negative. -Work up- HLA B27, MARILUZ, ANCA, Anti proteinase 3, Anti myeloperoxidase- pending , Rheumatoid factor < 10; HIV negative, MRI brain- as above, X rays- no acute abnormalities found. MRI sacral spine - 1. Mild T1 and T2 subchondral marrow edema involving the inferior aspect of the left SI joint. Findings are consistent with a unilateral sacroiliitis. 2. Minor muscular edema involving the left erector spinous muscle. -ID ordered - Dengue, Parvovirus, EBV, TB test ordered- pending -Discussed with rheumatology and Infectious disease. DISPOSITION Eager to be discharged home Discussed with Rheumatology and ID - okay to discharge with outpatient follow ups Will follow up the test results outpatient Total time spent on discharge = 35 minutes This includes examination of the patient, discharge planning, medication reconciliation, and communication with other providers. Discharge Instructions Discharge Diagnosis / Problem: 1. Right knee effusion, unclear etiology Discharge Goals Goal(s): Diagnostic testing, Therapeutic intervention Activity Recommendations Activity Limitations: resume your previous activity (as tolerated prior to admission) . Instructions / Follow-Up Instructions / Follow-Up FOLLOW UP 1. Follow up with Dr Gomez on 09/08/16 at 10:15 AM (Jose) 2. Follow up with Dr Betty Garcia, Rheumatology in 1-2 weeks 3. Follow up with Dr Andres, Infectious Disease in 1 week Current Hospital Diet Patient's current hospital diet: Regular Diet Discharge Diet Recommended Diet: Regular Diet Pending Studies Studies pending at discharge: no Medical Emergencies . Who to Call and When: Medical Emergencies: If at any time you feel your situation is an emergency, please call 911 immediately. . Non-Emergent Contact Non-Emergency issues call your: Primary Care Provider . . "Provider Documentation" section prepared by Laly Mann. . VTE Core Measure Inpt VTE Proph given/why not?: Dedra Mccullough, SCD's
[2016-09-03 14:02] VITALS: BP 107/69; PULSE 83; TEMP 36.6; O2SAT 100
[2016-09-03 21:32] LABS: CHLAMYDIA TRACH RNA*** NOT DETECTED (NOT DETECTED); GC (NEIS GONORRHOEAE)RNA** NOT DETECTED (NOT DETECTED)
[2016-09-04] MEDS ORDERED: MELO7.5T6 PO (12:05)
[2016-09-04] MEDS ORDERED: METH4PAK PO (12:05)
[2016-09-04 14:59] LABS: EPSTEIN BARR VIR CAPSID IGG <18.00 U/ML
[2016-09-04 23:06] LABS: HLA-B27** TC 528X POSITIVE (NEGATIVE)
[2016-09-05 13:55] LABS: QUANTIF TB AG-NIL 0.11 IU/ML; QUANTIFERON NIL 0.09 IU/ML
[2016-09-05 19:27] LABS: LYME DNA PCR CSF OR SYNOVIAL Not detected (Not Detected); LYME DNA SOURCE Synovial Fluid
[2016-09-07 21:40] LABS: MYELOPEROXIDASE AB <1.0 AI (<1.0)
[2016-09-08 18:07] LABS: DENGUE FEVER IgG AB 0.13; DENGUE FEVER IgM AB 3.14; PARVOVIRUS IgG INDEX 0.3 (<0.9); PARVOVIRUS IgM INDEX 0.1 (<0.9)
== END 2016-09-03 14:47 | disposition home or self-care (01) | DRG 566 ==
LOC: C.EDB 19:57 → C.MED 08-31 02:00 → CANRESERV 08-31 02:09 → ENRESERV 08-31 02:09 → EDBEDREQSVC 08-31 02:20 → ENRESERV 08-31 02:22 → CANRESERV 08-31 02:22 → ENRESERV 08-31 02:55 → OBSVTOIN 09-01 08:17 → C.MS4W 09-01 21:19
PROVIDERS: ADMIT Hospitalist; ATTEND Internal Medicine
PROC: 0S9C3ZX Drainage of Right Knee Joint, Percutaneous Approach, Diagnostic (ICD-10-PCS; principal; 2016-09-01)
DX: M25.461 Effusion, right knee (principal); M13.0 Polyarthritis, unspecified; D64.9 Anemia, unspecified; D72.829 Elevated white blood cell count, unspecified; R76.8 Other specified abnormal immunological findings in serum; M54.2 Cervicalgia; R50.9 Fever, unspecified; R61 Generalized hyperhidrosis; R51 Headache; H93.19 Tinnitus, unspecified ear; M25.475 Effusion, left foot; M25.474 Effusion, right foot; R63.4 Abnormal weight loss; Z68.20 Body mass index [BMI] 20.0-20.9, adult; Z86.19 Personal history of other infectious and parasitic diseases